=== PATIENT | male | born 1990 | race Caucasian/White ===

== ENCOUNTER 2019-09-14 01:33 | Inpatient (IN) | payer OTHER ==
[2019-09-14] MEDS ORDERED: Norepinephrine 16MCG/ML IVPRE* 4,000 MCG/250 ML BAG IV ONE (02:22)
[2019-09-14] MEDS ORDERED: Propofol* 100 ML ONE (02:22)
[2019-09-14] MEDS ORDERED: Propofol* 100 ML IV SCH (03:00)
[2019-09-14] MEDS ORDERED: Norepinephrine 16MCG/ML IVPRE* 4,000 MCG/250 ML BAG IV SCH (03:00)
[2019-09-14] MEDS ORDERED: NS 0.9% 1000 ML** 1,000 ML IV SCH ×3 (03:15→13:47)
[2019-09-14 03:24] LABS: Hematocrit 37 % (42-52); Hemoglobin 12.6 g/dL (14.0-18.0); Mean Corpuscular HGB Conc 34 g/dL (31-36); Mean Corpuscular Hemoglobin 30 pg (27-31); Mean Corpuscular Volume 89 fL (80-94); Mean Platelet Volume 9.3 fL (7.4-10.4); Platelet Count 137 10^3/uL (150-450); Red Blood Count 4.19 10^6 /uL (4.18-5.48); Red Cell Distribution Width 14 % (10-15); White Blood Count 21.1 10^3/uL (3.5-10.8)
[2019-09-14] MEDS ORDERED: Piperacillin/Tazobac ADVAN(*) 3.375 GM in NS 0.9% 100 ML* 100 ML IVPB ONE (03:41)
[2019-09-14 03:42] LABS: Albumin 4.1 g/dL (3.2-5.2); CO2 Carbon Dioxide 19 mmol/L (22-32); Calcium 7.5 mg/dL (8.6-10.3); Magnesium 2.5 mg/dL (1.9-2.7); Potassium 4.4 mmol/L (3.5-5.0); Sodium 142 mmol/L (135-145)
[2019-09-14 03:44] LABS: Anion Gap 8 mmol/L (2-11); Chloride 115 mmol/L (101-111)
[2019-09-14 03:48] LABS: ABS Lymphocytes 0.6 10^3/ul (1.0-4.8); ABS Monocytes 2.4 10^3/ul (0-0.8); ABS Neutrophils 18.1 10^3/ul (1.5-7.7); ALT 26 U/L (7-52); AST 106 U/L (13-39); Albumin/Globulin Ratio 2.2 (1-3); Alkaline Phosphatase 69 U/L (34-104); BUN/Creatinine Ratio 16.5 (8-20); Blood Urea Nitrogen 26 mg/dL (6-24); C Reactive Protein < 1.00 mg/L (<8.01); EGFR African American 63.5 (>60); EGFR Non-African American 52.5 (>60); Globulin 1.9 g/dL (2-4); Glucose 131 mg/dL (70-100); Lymphocyte % 2.9 %; Troponin I 0.07 ng/mL (<0.03)
[2019-09-14 04:00] LABS: Creatine Kinase 7414 U/L (10-223)
[2019-09-14] MEDS ORDERED: Zosyn per Pharmacy* NOTE FOLLOW UP SCH (04:00)
[2019-09-14] MEDS: Propofol* 100 ML IV SCH ×4 (04:18→17:36)
[2019-09-14 04:20] LABS: TSH (Thyroid Stimulating Horm) 0.95 mcIU/mL (0.34-5.60)
[2019-09-14 04:46] LABS: Urine Appearance Turbid; Urine Bacteria Absent (Absent); Urine Bilirubin Negative (Negative); Urine Blood 3+ (Negative); Urine Color Red; Urine Glucose Negative (Negative); Urine Ketones 1+ (Negative); Urine Nitrite Negative (Negative); Urine Protein 2+(100 mg/dL) (Negative); Urine Red Blood Cell 3+(>10/hpf) (Absent); Urine Specific Gravity 1.016 (1.010-1.030); Urine Squamous Epithelial Cell Present (Absent); Urine Urobilinogen Negative (Negative); Urine White Blood Cell Absent (Absent)
[2019-09-14] MEDS: Pantoprazole IV* 40 MG IV SCH ×2 (07:49→08:06)
[2019-09-14] MEDS: Heparin VIAL(*) 5000 UNITS/ML VIAL (FIVE THOUSAND) SUBCUT SCH ×3 (08:11→23:04)
[2019-09-14 08:38] LABS: Troponin I 0.05 ng/mL (<0.03)
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
[2019-09-14] MEDS ORDERED: Chlorhexidine MOUTHWASH 0.12%* 15 ML UDC SWISH SPIT SCH (10:00)
[2019-09-14] MEDS: ZOSYN 3.375 GM Q8H per EXTENDED INFUSION IVPB SCH ×6 (10:02→23:04)
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
[2019-09-14] MEDS: Chlorhexidine MOUTHWASH 0.12%* 15 ML UDC SWISH SPIT SCH ×3 (12:08→20:37)
[2019-09-14] MEDS ORDERED: NS 0.9% 1000 ML** 1,000 ML IV ONE (13:46)
[2019-09-14] MEDS ORDERED: Sodium Bicarbonate 8.4% IV* 150 MEQ in D5W 1000 ML BAG* 850 ML IV ONE ×4 (14:00)
[2019-09-14] MEDS: NS 0.9% 1000 ML** 1,000 ML IV SCH ×2 (19:59→23:45)
[2019-09-14] MEDS ORDERED: fentaNYL INFUSION 50 MCG/ML* 2,500 MCG/50 ML BAG IV SCH (23:00)
[2019-09-15] MEDS: Chlorhexidine MOUTHWASH 0.12%* 15 ML UDC SWISH SPIT SCH ×6 (02:13→20:13)
[2019-09-15] MEDS: Propofol* 100 ML IV SCH ×5 (02:52→20:12)
[2019-09-15] MEDS: Heparin VIAL(*) 5000 UNITS/ML VIAL (FIVE THOUSAND) SUBCUT SCH ×3 (05:50→21:01)
[2019-09-15 06:26] LABS: ABS Lymphocytes 2.9 10^3/ul (1.0-4.8); ABS Monocytes 0.9 10^3/ul (0-0.8); ABS Neutrophils 6.3 10^3/ul (1.5-7.7); Eosinophil % 0.4 %; Hematocrit 34 % (42-52); Hemoglobin 11.7 g/dL (14.0-18.0); Lymphocyte % 28.3 %; Mean Corpuscular HGB Conc 35 g/dL (31-36); Mean Corpuscular Hemoglobin 31 pg (27-31); Mean Corpuscular Volume 88 fL (80-94); Mean Platelet Volume 8.8 fL (7.4-10.4); Nucleated Red Blood Cells % 0.1; Platelet Count 102 10^3/uL (150-450); Red Cell Distribution Width 14 % (10-15); White Blood Count 10.1 10^3/uL (3.5-10.8)
[2019-09-15 06:49] LABS: Albumin 2.9 g/dL (3.2-5.2); Albumin/Globulin Ratio 1.8 (1-3); BUN/Creatinine Ratio 19.8 (8-20); Calcium 7.3 mg/dL (8.6-10.3); EGFR African American 100.7 (>60); EGFR Non-African American 83.2 (>60); Globulin 1.6 g/dL (2-4); Potassium 3.7 mmol/L (3.5-5.0); Total Bilirubin 0.4 mg/dL (0.2-1.0); Total Protein 4.5 g/dL (6.4-8.9)
[2019-09-15] MEDS: NS 0.9% 1000 ML** 1,000 ML IV SCH ×2 (07:26→11:08)
[2019-09-15] MEDS: ZOSYN 3.375 GM Q8H per EXTENDED INFUSION IVPB SCH ×4 (08:16→16:20)
[2019-09-15] MEDS: Pantoprazole IV* 40 MG IV SCH (08:17)
[2019-09-15] MEDS ORDERED: Dextrose 50% Syringe 50 ML* 25 GM/50 ML SYRINGE IV PUSH PRN (11:14)
[2019-09-15] MEDS: D5LR 1000 ML BAG* 1,000 ML IV SCH ×3 (11:36→21:01)
[2019-09-15] MEDS: Sodium Bicarbonate 8.4% IV* 150 MEQ in D5W 1000 ML BAG* 850 ML IV SCH ×4 (11:51→20:51)
--- NOTE | 2019-09-15 16:26 | PN ---
Date of Service: 09/15/19 Critical Care Services: Remains on ventilator and sedated with propofol. Has severe rhabdomyolysis, with last CPK of 35,000 - is being managed with aggressive saline infusions and a bicarbonate drip. Vital Signs: Temp Pulse Resp BP SpO2 FiO2 97.4 F 74 14 110/63 96 21 Physical Exam: Gen:Sedated and ventilated HEENT:Pupils midposition and reactive Lungs:Clear Cardiac: Reg rhythm Abdomen:Not distended Extremities:No cyanosis or edema Neuro: no focal deficits Fluid Balance (Past 24 Hours): 09/14/19 09/15/19 06:59 06:59 Intake Total 408 5823 Output Total 810 1715 Balance -402 4108 Weight 135 lb 2.294 oz 141 lb 1.533 oz Intake: IV Fluids 218 5124 ABX - ZOSYN D5W LR NS (0.9%) 218 4024 bicarb 1100 IVPB 111 274 ABX - ZOSYN 111 176 NS (0.9%) 98 Medicated IV 79 425 CC - Norepinephrine/ 19 Levophed CC - Propofol/Diprivan 60 425 IV Narcotic Infusion Fentanyl Oral 0 Output: Roth 810 1715 Other: Date of Last Bowel 09/14/2019 Movement # Bowel Movements 1 Estimated Stool Amount Medium Labs: 09/15/19 09/15/19 09/15/19 05:55 05:55 12:00 WBC 10.1 RBC 3.80 L Hgb 11.7 L Hct 34 L MCV 88 MCH 31 MCHC 35 RDW 14 Plt Count 102 L MPV 8.8 Neut % (Auto) 62.0 Lymph % (Auto) 28.3 Yancey % (Auto) 9.0 Eos % (Auto) 0.4 Baso % (Auto) 0.3 Absolute Neuts (auto) 6.3 Absolute Lymphs (auto) 2.9 Absolute Monos (auto) 0.9 H Absolute Eos (auto) 0.0 Absolute Basos (auto) 0.0 Absolute Nucleated RBC 0.0 Nucleated RBC % 0.1 Sodium 142 Potassium 3.7 Chloride 115 H Carbon Dioxide 23 Anion Gap 4 BUN 21 Creatinine 1.06 Est GFR ( Amer) 100.7 Est GFR (Non-Af Amer) 83.2 BUN/Creatinine Ratio 19.8 Glucose 75 Calcium 7.3 L Phosphorus 3.0 Total Bilirubin 0.40 AST 798 H ALT 196 H Alkaline Phosphatase 60 Total Creatine Kinase 13428 H Total Protein 4.5 L Albumin 2.9 L Globulin 1.6 L Albumin/Globulin Ratio 1.8 Urine pH 09/15/19 15:08 WBC RBC Hgb Hct MCV MCH MCHC RDW Plt Count MPV Neut % (Auto) Lymph % (Auto) Yancey % (Auto) Eos % (Auto) Baso % (Auto) Absolute Neuts (auto) Absolute Lymphs (auto) Absolute Monos (auto) Absolute Eos (auto) Absolute Basos (auto) Absolute Nucleated RBC Nucleated RBC % Sodium Potassium Chloride Carbon Dioxide Anion Gap BUN Creatinine Est GFR ( Amer) Est GFR (Non-Af Amer) BUN/Creatinine Ratio Glucose Calcium Phosphorus Total Bilirubin AST ALT Alkaline Phosphatase Total Creatine Kinase Total Protein Albumin Globulin Albumin/Globulin Ratio Urine pH 5 Studies: Urine pH = 5 Nutrition: Started tube feedings with Jevity 1.2 at 60 cc/hr Impression: Drug overdose (multiple drugs) with severe rhabdomyolysis Plan: 1. Saline infusion at 250 cc/hr 2. Bicarb infusion (3 amps in 1 liter D5W) at 200 cc/hr and titrate to keep urine pH > 6.5 3. Keep sedated and on ventilator until after CPK peaks NOTE: We found patient's parents and spoke with the mother, who gives a history of longstanding drug problems. Critical Care Time: 45 minutes
[2019-09-15 18:57] LABS: BUN/Creatinine Ratio 15.7 (8-20); EGFR African American 105.2 (>60); Potassium 3.7 mmol/L (3.5-5.0)
[2019-09-15] MEDS ORDERED: Midazolam IV for DRIP* 100 MG in NS 0.9% 100 ML* 80 ML IV SCH (21:00)
[2019-09-16] MEDS: Propofol* 100 ML IV SCH ×6 (00:02→21:35)
[2019-09-16] MEDS: Chlorhexidine MOUTHWASH 0.12%* 15 ML UDC SWISH SPIT SCH ×6 (00:02→19:51)
[2019-09-16] MEDS: ZOSYN 3.375 GM Q8H per EXTENDED INFUSION IVPB SCH ×6 (00:03→16:27)
[2019-09-16] MEDS: Sodium Bicarbonate 8.4% IV* 150 MEQ in D5W 1000 ML BAG* 850 ML IV SCH ×3 (00:51→07:36)
[2019-09-16] MEDS: D5LR 1000 ML BAG* 1,000 ML IV SCH (02:19)
[2019-09-16 04:49] LABS: ABS Eosinophils 0.2 10^3/ul (0-0.6); ABS Lymphocytes 2.4 10^3/ul (1.0-4.8); ABS Monocytes 0.9 10^3/ul (0-0.8); ABS Neutrophils 5.2 10^3/ul (1.5-7.7); Eosinophil % 1.9 %; Hematocrit 35 % (42-52); Hemoglobin 12.1 g/dL (14.0-18.0); Lymphocyte % 27.4 %; Mean Corpuscular HGB Conc 35 g/dL (31-36); Mean Corpuscular Hemoglobin 31 pg (27-31); Mean Corpuscular Volume 88 fL (80-94); Mean Platelet Volume 8.7 fL (7.4-10.4); Platelet Count 100 10^3/uL (150-450); Red Blood Count 3.93 10^6 /uL (4.18-5.48); Red Cell Distribution Width 14 % (10-15); White Blood Count 8.6 10^3/uL (3.5-10.8)
[2019-09-16 05:01] LABS: Albumin 2.6 g/dL (3.2-5.2); Total Bilirubin 0.4 mg/dL (0.2-1.0)
[2019-09-16 05:07] LABS: Albumin/Globulin Ratio 1.7 (1-3); BUN/Creatinine Ratio 11.7 (8-20); EGFR African American 115.6 (>60); EGFR Non-African American 95.6 (>60); Globulin 1.5 g/dL (2-4); Total Protein 4.1 g/dL (6.4-8.9)
[2019-09-16] MEDS: Heparin VIAL(*) 5000 UNITS/ML VIAL (FIVE THOUSAND) SUBCUT SCH ×3 (05:09→21:34)
[2019-09-16] MEDS: KCL 20 MEQ/100 ML IVPREMIX* 20 MEQ/100 ML BAG IV SCH ×3 (06:41→11:05)
[2019-09-16] MEDS: Pantoprazole IV* 40 MG IV SCH (07:35)
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
[2019-09-16] MEDS ORDERED: Lorazepam PYXIS KEY ONE (12:29)
[2019-09-16] MEDS ORDERED: LORazepam INJ* 2 MG/ML 1 ML VIAL ONE (12:30)
[2019-09-16] MEDS ORDERED: LORazepam INJ* 2 MG/ML 1 ML VIAL IV PUSH PRN (12:38)
[2019-09-16] MEDS ORDERED: Lorazepam PYXIS KEY PRN (12:38)
[2019-09-16 15:35] LABS: CO2 Carbon Dioxide 32 mmol/L (22-32); Calcium 7.4 mg/dL (8.6-10.3); Chloride 108 mmol/L (101-111); Potassium 3.8 mmol/L (3.5-5.0); Sodium 139 mmol/L (135-145)
[2019-09-16 15:40] LABS: BUN/Creatinine Ratio 10.5 (8-20); Blood Urea Nitrogen 8 mg/dL (6-24); EGFR African American 147.8 (>60); EGFR Non-African American 122.1 (>60); Glucose 121 mg/dL (70-100)
[2019-09-16] MEDS: NS 0.9% 1000 ML** 1,000 ML IV SCH (16:27)
[2019-09-16 16:28] LABS: Creatine Kinase 12228 U/L (10-223)
[2019-09-17] MEDS: Propofol* 100 ML IV SCH ×3 (01:20→07:27)
[2019-09-17] MEDS: NS 0.9% 1000 ML** 1,000 ML IV SCH ×4 (01:20→17:52)
[2019-09-17] MEDS: Chlorhexidine MOUTHWASH 0.12%* 15 ML UDC SWISH SPIT SCH ×4 (04:08→13:21)
[2019-09-17 04:39] LABS: BUN/Creatinine Ratio 11.3 (8-20); Calcium 7.5 mg/dL (8.6-10.3); EGFR African American 139.3 (>60); EGFR Non-African American 115.1 (>60); Potassium 4.3 mmol/L (3.5-5.0)
[2019-09-17] MEDS: Heparin VIAL(*) 5000 UNITS/ML VIAL (FIVE THOUSAND) SUBCUT SCH ×3 (06:05→21:35)
[2019-09-17] MEDS ORDERED: Lorazepam PYXIS KEY PRN (07:45)
[2019-09-17] MEDS: ZOSYN 3.375 GM Q8H per EXTENDED INFUSION IVPB SCH ×4 (07:58)
[2019-09-17] MEDS: Pantoprazole IV* 40 MG IV SCH (08:02)
[2019-09-17] MEDS ORDERED: Dexmedetomidine* 1,000 MCG in NS 0.9% 250 ML* 240 ML IV SCH (09:00)
--- NOTE | 2019-09-17 09:06 | PN ---
Progress Note - Progress Note Date of Service: 09/17/19 Note: Progress Note -- Critical Care 24 hour events/significant events: - CPK continues to trend down. - Remains sedated and comfortable ROS: ROS unable to be obtained secondary to intubated/sedated Tele: sinus Vitals: Vital Signs 09/16/19 09/16/19 09/16/19 09:00 09:15 09:30 Temperature Pulse Rate 84 82 84 Respiratory 14 Rate Blood Pressure 120/65 120/60 (mmHg) O2 Sat by Pulse 96 96 96 Oximetry 09/16/19 09/16/19 09/16/19 09:45 10:00 10:15 Temperature Pulse Rate 87 83 85 Respiratory 14 Rate Blood Pressure 115/62 (mmHg) O2 Sat by Pulse 93 94 94 Oximetry 09/16/19 09/16/19 09/16/19 10:30 10:45 11:00 Temperature Pulse Rate 81 98 85 Respiratory 14 Rate Blood Pressure 113/59 117/60 (mmHg) O2 Sat by Pulse 95 75 91 Oximetry 09/16/19 09/16/19 09/16/19 11:15 11:30 11:45 Temperature Pulse Rate 88 83 105 Respiratory Rate Blood Pressure 111/61 (mmHg) O2 Sat by Pulse 91 96 96 Oximetry 09/16/19 09/16/19 09/16/19 12:00 12:15 12:30 Temperature 97.0 F Pulse Rate 85 79 87 Respiratory Rate Blood Pressure 111/61 116/67 (mmHg) O2 Sat by Pulse 97 97 94 Oximetry 09/16/19 09/16/19 09/16/19 12:35 12:45 13:00 Temperature Pulse Rate 86 85 Respiratory 14 14 Rate Blood Pressure 104/51 (mmHg) O2 Sat by Pulse 95 96 Oximetry 09/16/19 09/16/19 09/16/19 13:15 13:30 13:45 Temperature Pulse Rate 85 84 85 Respiratory Rate Blood Pressure 97/49 (mmHg) O2 Sat by Pulse 97 95 94 Oximetry 09/16/19 09/16/19 09/16/19 14:00 14:15 14:30 Temperature Pulse Rate 83 85 84 Respiratory Rate Blood Pressure 102/53 99/54 (mmHg) O2 Sat by Pulse 95 95 95 Oximetry 09/16/19 09/16/19 09/16/19 14:45 15:00 15:15 Temperature Pulse Rate 84 83 87 Respiratory 14 Rate Blood Pressure 103/50 (mmHg) O2 Sat by Pulse 95 96 96 Oximetry 09/16/19 09/16/19 09/16/19 15:30 15:45 16:00 Temperature 96.8 F Pulse Rate 87 83 84 Respiratory 14 Rate Blood Pressure 101/46 105/45 (mmHg) O2 Sat by Pulse 97 97 97 Oximetry 09/16/19 09/16/19 09/16/19 16:15 16:30 16:45 Temperature Pulse Rate 85 85 82 Respiratory Rate Blood Pressure 106/47 (mmHg) O2 Sat by Pulse 97 97 97 Oximetry 09/16/19 09/16/19 09/16/19 17:00 17:15 17:30 Temperature Pulse Rate 85 86 88 Respiratory 14 Rate Blood Pressure 109/53 110/55 (mmHg) O2 Sat by Pulse 97 97 97 Oximetry 09/16/19 09/16/19 09/16/19 17:45 18:00 18:30 Temperature Pulse Rate 92 94 87 Respiratory 14 Rate Blood Pressure 120/60 114/57 (mmHg) O2 Sat by Pulse 97 96 97 Oximetry 09/16/19 09/16/19 09/16/19 19:00 19:30 20:00 Temperature 97.2 F Pulse Rate 93 89 90 Respiratory 14 14 Rate Blood Pressure 116/57 120/56 119/59 (mmHg) O2 Sat by Pulse 97 97 97 Oximetry 09/16/19 09/16/19 09/16/19 20:30 21:00 21:30 Temperature Pulse Rate 90 85 88 Respiratory 14 Rate Blood Pressure 119/54 119/54 113/53 (mmHg) O2 Sat by Pulse 96 96 96 Oximetry 09/16/19 09/16/19 09/16/19 22:00 22:30 23:00 Temperature Pulse Rate 86 87 82 Respiratory 14 14 Rate Blood Pressure 118/56 117/53 109/51 (mmHg) O2 Sat by Pulse 96 96 97 Oximetry 09/16/19 09/16/19 09/17/19 23:30 23:34 00:00 Temperature 98.3 F Pulse Rate 82 79 Respiratory 14 Rate Blood Pressure 112/54 106/48 (mmHg) O2 Sat by Pulse 97 97 Oximetry 09/17/19 09/17/19 09/17/19 00:30 01:00 01:30 Temperature Pulse Rate 79 78 77 Respiratory 14 Rate Blood Pressure 114/60 115/64 111/56 (mmHg) O2 Sat by Pulse 96 98 98 Oximetry 09/17/19 09/17/19 09/17/19 02:00 02:30 03:00 Temperature Pulse Rate 78 75 75 Respiratory 14 14 Rate Blood Pressure 112/55 113/57 113/54 (mmHg) O2 Sat by Pulse 97 97 98 Oximetry 09/17/19 09/17/19 09/17/19 03:30 03:59 04:00 Temperature 97.5 F Pulse Rate 74 81 Respiratory 14 Rate Blood Pressure 107/54 119/70 (mmHg) O2 Sat by Pulse 99 98 Oximetry 09/17/19 09/17/19 09/17/19 04:30 05:00 05:30 Temperature Pulse Rate 74 73 73 Respiratory 14 Rate Blood Pressure 127/74 124/69 116/58 (mmHg) O2 Sat by Pulse 97 97 97 Oximetry 09/17/19 09/17/19 09/17/19 06:00 06:30 07:00 Temperature Pulse Rate 73 73 72 Respiratory 14 14 Rate Blood Pressure 115/58 125/65 128/69 (mmHg) O2 Sat by Pulse 98 100 100 Oximetry 09/17/19 09/17/19 09/17/19 07:30 08:00 08:30 Temperature 97.0 F Pulse Rate 74 77 77 Respiratory 14 Rate Blood Pressure 130/65 129/72 126/62 (mmHg) O2 Sat by Pulse 100 100 100 Oximetry Intake and Output Last 24 Hours 09/15/19 09/16/19 09/17/19 09/18/19 06:59 06:59 06:59 06:59 Intake Total 5823 7992 43544 82 Output Total 1715 2150 4090 585 Balance 4108 5842 80508 -503 Weight 141 lb 1.533 oz 149 lb 1.745 oz Intake: IV Fluids 5124 2354 61721 ABX - ZOSYN 75 100 D5W LR 470 3754 NS (0.9%) 4024 1405 2838 bicarb 5978 382 1993 IVPB 274 5000 526 ABX - ZOSYN 176 100 226 D5W LR 2200 NS (0.9%) 98 300 bicarb 2700 Medicated IV 425 156 918 CC - Propofol/Diprivan 425 156 918 IV Narcotic Infusion 82 53 Fentanyl 62 33 Versed 20 20 Oral 0 0 0 Tube Feeding 400 1746 82 Tube Feeding Flush Amount 180 0 Output: Urine 100 Carrera 1715 2050 4090 585 Tube Feeding Residual 0 Amount Wasted Other: Date of Last Bowel 09/14/2019 09/14/2019 09/14/2019 Movement # Bowel Movements 1 Estimated Stool Amount Medium Vent: CMV 14/500/+5/21% Infusions: Propofol @ 80 Medications: Chlorhexidine Gluconate (Peridex Mouth Wash 0.12%*) 15 ml SWISH SPIT Q4H [facility] Last Admin: 09/17/19 07:50 Dose: 15 ml Dextrose (D50w Syringe 50 Ml*) 25 gm IV PUSH ONCE PRN PRN Reason: FS < 60 Last Admin: 09/15/19 11:36 Dose: 25 gm Heparin Sodium (Porcine) (Heparin Vial(*)) 5,000 units SUBCUT Q8HR [facility] Last Admin: 09/17/19 06:05 Dose: 5,000 units Propofol (Diprivan*) 100 mls @ 0 mls/hr IV .PER PROTOCOL NEMESIO; Protocol Last Admin: 09/17/19 07:27 Dose: 28.8 mls/hr Sodium Chloride (Ns 0.9% 1000 Ml) 1,000 mls @ 150 mls/hr IV PER RATE [facility] Dexmedetomidine HCl 1,000 mcg/ (Sodium Chloride) 250 mls @ 5.07 mls/hr IV .PER PROTOCOL NEMESIO; Protocol Lorazepam (Ativan Inj*) 1 mg IV PUSH Q1H PRN PRN Reason: AGITATION Miscellaneous (Ativan Pyxis Cedillo) 1 ea N/A .ATIVAN IV CEDILLO PRN PRN Reason: PYXIS CEDILLO Pantoprazole Sodium (Protonix Iv*) 40 mg IV DAILY [facility] Last Admin: 09/17/19 08:02 Dose: 40 mg Physical Exam: Constitutional: Sedation not paused. Opens eyes to voice. No apparent distress Head: normocephalic, atraumatic Eyes: no pallor, no icterus ENT: moist mucous membranes Neck: soft, supple CVS: normal rate, regular, no murmur Chest/Resp: bilateral air entry, clear but diminished throughout. No rhales, no wheeze, no rhonchi, no acc muscle use Abdomen/GI: soft, nontender, nondistended, BS+ Ext/Msk: warm, pulses+, no edema Skin: intact, warm Neuro: Sedation not paused for exam. Opens eyes briefly to voice, does not follow commands. Moving all extremities. PERRL 2mm, sluggishly reactive. Brain stem intact Labs: Laboratory Results - last 24 hr 09/15/19 09/15/19 09/15/19 11:06 12:19 18:09 Sodium Potassium Chloride Carbon Dioxide Anion Gap BUN Creatinine Est GFR ( Amer) Est GFR (Non-Af Amer) BUN/Creatinine Ratio Glucose POC Glucose (mg/dL) 60 L 142 H 211 H Calcium Total Creatine Kinase 09/16/19 09/16/19 09/16/19 00:20 12:22 14:55 Sodium 139 Potassium 3.8 Chloride 108 Carbon Dioxide 32 Anion Gap BUN 8 Creatinine 0.76 Est GFR ( Amer) 147.8 Est GFR (Non-Af Amer) 122.1 BUN/Creatinine Ratio 10.5 Glucose 121 H POC Glucose (mg/dL) 223 H 109 H Calcium 7.4 L Total Creatine Kinase 96120 H 09/16/19 09/17/19 09/17/19 18:07 00:05 04:18 Sodium 140 Potassium 4.3 Chloride 111 Carbon Dioxide 28 Anion Gap 1 L BUN 9 Creatinine 0.80 Est GFR ( Amer) 139.3 Est GFR (Non-Af Amer) 115.1 BUN/Creatinine Ratio 11.3 Glucose 119 H POC Glucose (mg/dL) 129 H 141 H Calcium 7.5 L Total Creatine Kinase 7434 H Imaging: Chest xray 09/17: No active cardiopulmonary disease Chest xray 09/14: ETT in place. No infiltrates. EKG 09/14: sinus, qtc 496 Assessment: 28M with significant medical history of drug abuse, presents on 09/14 after a suspected drug overdose. He was transferred from [facility] after being admitted with AMS, agitation, sepsis. Intubated there. Admitted to ICU with rhabdomyolysis, drug overdose, and concern for sepsis. Tox screen positive for meth, marijuana, and cocaine. - Drug overdose - Rhabdomyolysis - Aspiration pneumonia - Delirium Plan: Neuro- - Agitation: acute, most likely r/t drug overdose, delirium. Will start transitioning from propofol to precedex this AM. Will also add scheduled zyprexa - PRN Ativan for agitation -Delirium prec CVS- - No active issues -Maintain MAP>65 Resp- - Intubated. Continue current vent settings. PS trial this AM - Patient may be extubated later in the day if he wakes and does well on PS - Rpt chest xray is clear -Wean Fio2 to keep sat>92% -Aspiration prec, Pulmonary Toilet -VAP bundle ID- - Febrile on admission and WBC elevated on admission. Both have trended down but there is a concern for aspiration PNA. - Discontinued zosyn since asymptomatic - Goal temp<101 GI- -Nutrition: hold tube feeding for possible extubation later today -GI prophylaxis: protonix Renal- - Rhabdomyolysis acute, improving. Decreased NS to 150cc/hr since continues to be quite net positive. CPKs continue to trend down - Continue hydration -strict I/O, replete to keep K>4, Mg>2 -Continue carrera Heme- - No active issues - Subq heparin and SCDs for DVT prophylaxis Endo-Maintain BG<200 Musculsk- pressure ulcer prophylaxis. Bedrest. Wounds- none Nutrition- Tube feeds- hold for extubation DVT prophylaxis: Subq heparin, SCDs GI prophylaxis: protonix Central Line: right femoral line Carrera Catheter: continue Disposition: Patient requires Critical Care/ICU for rhabdomyolysis, intubation , delirium, drug overdose, probable aspiration PNA Patient clinical status: critical Code Status:full Total Critical Care time is 30minutes
[2019-09-17] MEDS: Dexmedetomidine* 1,000 MCG in NS 0.9% 250 ML* 240 ML IV SCH ×2 (09:28→23:55)
[2019-09-17] MEDS ORDERED: OLANzapine TAB*ODT* 10 MG TAB PO SCH (11:00)
[2019-09-17] MEDS ORDERED: OLANzapine TAB*ODT* 5 MG PO SCH (11:32)
[2019-09-17] MEDS: LORazepam INJ* 2 MG/ML 1 ML VIAL IV PUSH ONE (15:18)
[2019-09-17] MEDS: LORazepam INJ* 2 MG/ML 1 ML VIAL IV PUSH PRN ×4 (16:11→22:45)
[2019-09-18] MEDS: LORazepam INJ* 2 MG/ML 1 ML VIAL IV PUSH PRN ×3 (00:15→05:59)
[2019-09-18] MEDS: NS 0.9% 1000 ML** 1,000 ML IV SCH ×3 (00:23→12:42)
[2019-09-18] MEDS: Heparin VIAL(*) 5000 UNITS/ML VIAL (FIVE THOUSAND) SUBCUT SCH ×3 (04:55→20:43)
[2019-09-18 05:50] LABS: Hematocrit 38 % (42-52); Mean Corpuscular HGB Conc 34 g/dL (31-36); Mean Corpuscular Hemoglobin 30 pg (27-31); Mean Corpuscular Volume 89 fL (80-94); Mean Platelet Volume 8.6 fL (7.4-10.4); Platelet Count 111 10^3/uL (150-450); Red Blood Count 4.32 10^6 /uL (4.18-5.48); Red Cell Distribution Width 14 % (10-15); White Blood Count 9.2 10^3/uL (3.5-10.8)
[2019-09-18] MEDS: Dexmedetomidine* 1,000 MCG in NS 0.9% 250 ML* 240 ML IV SCH (06:03)
[2019-09-18 06:04] LABS: BUN/Creatinine Ratio 11.7 (8-20); Calcium 7.9 mg/dL (8.6-10.3); EGFR African American 194.1 (>60); EGFR Non-African American 160.4 (>60); Potassium 3.9 mmol/L (3.5-5.0)
[2019-09-18] MEDS ORDERED: Docusate LIQ* 100 MG/10 ML UDC PO PRN (07:18)
[2019-09-18] MEDS: Pantoprazole IV* 40 MG IV SCH (09:42)
[2019-09-18] MEDS: Haloperidol INJ IV/IM* 5 MG/ML AMP IV SLOW PU SCH ×3 (09:42→20:37)
[2019-09-18] MEDS: OLANzapine TAB*ODT* 5 MG PO SCH ×2 (09:45→20:40)
[2019-09-18] MEDS ORDERED: LORazepam INJ* 2 MG/ML 1 ML VIAL IV PUSH PRN (10:01)
--- NOTE | 2019-09-18 10:03 | PN ---
Progress Note - Progress Note Date of Service: 09/18/19 Note: Progress Note -- Critical Care 24 hour events/significant events: - Extubated successfully yesterday - Remains on precedex - Became very agitated and violent overnight ROS: ROS unable to be obtained secondary to altered mental status Tele: sinus Vitals: Vital Signs 09/17/19 09/17/19 09/17/19 10:00 10:01 10:30 Temperature Pulse Rate 96 105 72 Respiratory 21 Rate Blood Pressure 132/107 140/82 (mmHg) O2 Sat by Pulse 89 85 97 Oximetry 09/17/19 09/17/19 09/17/19 11:00 11:30 11:55 Temperature Pulse Rate 72 71 Respiratory 14 15 Rate Blood Pressure 128/69 118/65 (mmHg) O2 Sat by Pulse 97 95 Oximetry 09/17/19 09/17/19 09/17/19 12:00 12:15 12:30 Temperature 98.2 F Pulse Rate 73 66 67 Respiratory Rate Blood Pressure 137/87 141/85 142/86 (mmHg) O2 Sat by Pulse 97 99 100 Oximetry 09/17/19 09/17/19 09/17/19 12:45 13:00 13:15 Temperature Pulse Rate 66 65 69 Respiratory 8 Rate Blood Pressure 141/85 136/83 152/105 (mmHg) O2 Sat by Pulse 99 98 95 Oximetry 09/17/19 09/17/19 09/17/19 13:30 13:45 14:00 Temperature Pulse Rate 69 61 69 Respiratory 12 Rate Blood Pressure 139/96 148/93 151/99 (mmHg) O2 Sat by Pulse 96 98 98 Oximetry 09/17/19 09/17/19 09/17/19 14:15 14:30 14:45 Temperature Pulse Rate 62 70 73 Respiratory Rate Blood Pressure 146/95 150/99 139/92 (mmHg) O2 Sat by Pulse 96 97 94 Oximetry 09/17/19 09/17/19 09/17/19 15:00 15:15 15:18 Temperature Pulse Rate 84 Respiratory 12 17 17 Rate Blood Pressure 155/103 158/90 (mmHg) O2 Sat by Pulse 96 Oximetry 09/17/19 09/17/19 09/17/19 15:30 15:45 16:00 Temperature 98.5 F Pulse Rate 70 72 68 Respiratory 18 18 17 Rate Blood Pressure 146/88 156/87 147/84 (mmHg) O2 Sat by Pulse 95 94 94 Oximetry 09/17/19 09/17/19 09/17/19 16:11 16:15 16:30 Temperature Pulse Rate 63 65 Respiratory 15 18 15 Rate Blood Pressure 154/86 145/88 (mmHg) O2 Sat by Pulse 97 96 Oximetry 09/17/19 09/17/19 09/17/19 16:45 17:00 17:15 Temperature Pulse Rate 66 63 65 Respiratory 16 16 15 Rate Blood Pressure 150/85 139/85 144/86 (mmHg) O2 Sat by Pulse 95 95 95 Oximetry 09/17/19 09/17/19 09/17/19 17:30 17:45 17:54 Temperature Pulse Rate 65 67 Respiratory 14 14 16 Rate Blood Pressure 143/85 148/84 (mmHg) O2 Sat by Pulse 95 92 Oximetry 09/17/19 09/17/19 09/17/19 18:00 18:15 18:30 Temperature Pulse Rate 69 64 60 Respiratory 16 16 18 Rate Blood Pressure 144/88 150/90 147/88 (mmHg) O2 Sat by Pulse 96 92 93 Oximetry 09/17/19 09/17/19 09/17/19 18:45 19:00 19:15 Temperature Pulse Rate 65 57 55 Respiratory 15 18 18 Rate Blood Pressure 148/94 145/87 143/87 (mmHg) O2 Sat by Pulse 97 95 97 Oximetry 09/17/19 09/17/19 09/17/19 19:30 19:45 19:59 Temperature 98.5 F Pulse Rate 54 56 Respiratory 17 19 Rate Blood Pressure 145/82 155/89 (mmHg) O2 Sat by Pulse 98 97 Oximetry 09/17/19 09/17/19 09/17/19 20:00 20:15 20:30 Temperature Pulse Rate 57 64 63 Respiratory 17 20 18 Rate Blood Pressure 138/84 153/91 141/96 (mmHg) O2 Sat by Pulse 99 96 94 Oximetry 09/17/19 09/17/19 09/17/19 20:45 20:46 20:52 Temperature Pulse Rate 66 65 Respiratory 19 22 23 Rate Blood Pressure 163/111 154/93 (mmHg) O2 Sat by Pulse 100 96 Oximetry 09/17/19 09/17/19 09/17/19 21:00 21:15 21:30 Temperature Pulse Rate 71 59 71 Respiratory 21 17 17 Rate Blood Pressure 143/81 158/97 (mmHg) O2 Sat by Pulse 96 96 91 Oximetry 09/17/19 09/17/19 09/17/19 21:43 21:45 22:00 Temperature Pulse Rate 59 67 Respiratory 20 19 20 Rate Blood Pressure 155/95 (mmHg) O2 Sat by Pulse 95 Oximetry 09/17/19 09/17/19 09/17/19 22:15 22:30 22:45 Temperature Pulse Rate 103 66 76 Respiratory 16 17 20 Rate Blood Pressure 167/94 147/89 159/95 (mmHg) O2 Sat by Pulse 100 93 98 Oximetry 09/17/19 09/17/19 09/17/19 23:00 23:05 23:15 Temperature Pulse Rate 62 76 71 Respiratory 17 23 19 Rate Blood Pressure 150/87 160/103 (mmHg) O2 Sat by Pulse 91 99 97 Oximetry 09/17/19 09/17/19 09/18/19 23:30 23:45 00:00 Temperature 97.7 F Pulse Rate 60 69 55 Respiratory 17 21 16 Rate Blood Pressure 149/89 158/94 (mmHg) O2 Sat by Pulse 93 97 98 Oximetry 09/18/19 09/18/19 09/18/19 00:01 00:15 00:30 Temperature Pulse Rate 57 68 55 Respiratory 19 16 20 Rate Blood Pressure 145/79 151/87 152/85 (mmHg) O2 Sat by Pulse 97 97 95 Oximetry 09/18/19 09/18/19 09/18/19 00:45 01:00 01:15 Temperature Pulse Rate 55 52 54 Respiratory 19 18 18 Rate Blood Pressure 147/85 145/85 152/81 (mmHg) O2 Sat by Pulse 96 96 96 Oximetry 09/18/19 09/18/19 09/18/19 01:30 01:45 02:00 Temperature Pulse Rate 54 53 53 Respiratory 16 17 17 Rate Blood Pressure 143/83 139/79 (mmHg) O2 Sat by Pulse 96 97 96 Oximetry 09/18/19 09/18/19 09/18/19 02:15 02:30 03:00 Temperature Pulse Rate 51 51 49 Respiratory 17 16 17 Rate Blood Pressure 142/80 141/81 149/86 (mmHg) O2 Sat by Pulse 97 98 98 Oximetry 09/18/19 09/18/19 09/18/19 03:30 04:00 04:11 Temperature 96.7 F Pulse Rate 48 48 58 Respiratory 18 17 16 Rate Blood Pressure 148/86 163/104 144/96 (mmHg) O2 Sat by Pulse 98 99 Oximetry 09/18/19 09/18/19 09/18/19 04:30 04:46 05:00 Temperature Pulse Rate 52 Respiratory 14 20 16 Rate Blood Pressure 157/100 158/93 (mmHg) O2 Sat by Pulse 98 Oximetry 09/18/19 09/18/19 09/18/19 05:30 05:59 06:00 Temperature Pulse Rate 52 50 Respiratory 18 21 21 Rate Blood Pressure 152/90 161/86 (mmHg) O2 Sat by Pulse 99 98 Oximetry 09/18/19 09/18/19 06:04 08:00 Temperature 99.7 F Pulse Rate 56 Respiratory 17 Rate Blood Pressure 149/98 (mmHg) O2 Sat by Pulse 100 Oximetry Intake and Output Last 24 Hours 09/16/19 09/17/19 09/18/19 09/19/19 06:59 06:59 06:59 06:59 Intake Total 7992 29992 4617 Output Total 2150 4090 8236 825 Balance 5842 67506 -3619 -825 Weight 149 lb 1.745 oz 154 lb 1.65 oz Intake: IV Fluids 2354 45880 3762 ABX - ZOSYN 75 100 D5W LR 470 3754 NS (0.9%) 1405 2838 3762 bicarb 404 4434 IVPB 5000 526 122 ABX - ZOSYN 100 226 122 D5W LR 2200 NS (0.9%) 300 bicarb 2700 Medicated IV 156 918 498 CC - Propofol/Diprivan 156 918 137 Precedex 361 IV Narcotic Infusion 82 53 Fentanyl 62 33 Versed 20 20 Oral 0 0 Tube Feeding 400 1746 235 Tube Feeding Flush Amount 180 0 Output: Urine 100 Carrera 2050 4090 8236 825 Tube Feeding Residual 0 Amount Wasted Other: Date of Last Bowel 09/14/2019 09/14/2019 Movement O2: RA Infusions: Precedex @ 1.1 Medications: Bisacodyl (Dulcolax Supp*) 10 mg ME DAILY PRN PRN Reason: CONSTIPATION Dextrose (D50w Syringe 50 Ml*) 25 gm IV PUSH ONCE PRN PRN Reason: FS < 60 Last Admin: 09/15/19 11:36 Dose: 25 gm Docusate Sodium (Colace Liq*) 100 mg PO BID PRN PRN Reason: CONSTIPATION Haloperidol Lactate (Haldol Inj Iv/Im*) 5 mg IV SLOW PU Q6H [facility] Last Admin: 09/18/19 09:42 Dose: 5 mg Heparin Sodium (Porcine) (Heparin Vial(*)) 5,000 units SUBCUT Q8HR [facility] Last Admin: 09/18/19 04:55 Dose: 5,000 units Sodium Chloride (Ns 0.9% 1000 Ml) 1,000 mls @ 150 mls/hr IV PER RATE [facility] Last Admin: 09/18/19 06:40 Dose: 150 mls/hr Dexmedetomidine HCl 1,000 mcg/ (Sodium Chloride) 250 mls @ 11.83 mls/hr IV Q21H [facility]; Protocol Last Admin: 09/18/19 06:03 Dose: Not Given Lorazepam (Ativan Inj*) 2 mg IV PUSH Q1H PRN PRN Reason: AGITATION Last Admin: 09/18/19 05:59 Dose: 2 mg Miscellaneous (Ativan Pyxis Cedillo) 1 ea N/A .ATIVAN IV CEDILLO PRN PRN Reason: PYXIS CEDILLO Olanzapine (Zyprexa * Tab Odt) 5 mg PO BID [facility] Last Admin: 09/18/19 09:45 Dose: 5 mg Pantoprazole Sodium (Protonix Iv*) 40 mg IV DAILY [facility] Last Admin: 09/18/19 09:42 Dose: 40 mg Senna (Senokot 8.6 Mg Tab*) 2 tab PO BID [facility] Physical Exam: Constitutional: Lethargic, opens eyes spontaneously. No apparent distress currently Head: normocephalic, atraumatic Eyes: no pallor, no icterus ENT: moist mucous membranes Neck: soft, supple CVS: normal rate, regular, no murmur Chest/Resp: bilateral air entry, clear but diminished throughout. No rhales, no wheeze, no rhonchi, no acc muscle use Abdomen/GI: soft, nontender, nondistended, BS+ Ext/Msk: warm, pulses+, no edema Skin: intact, warm Neuro: Lethargic, opens eyes spontaneously. Attempts to track. Oriented x 3 but most sentences are nonsensical. Follows commands at times. Moving all extremities. PERRL 2mm. Labs: Laboratory Results - last 24 hr 09/17/19 09/17/1909/17/20 06:08 12:05 17:59 WBC RBC Hgb Hct MCV MCH MCHC RDW Plt Count MPV Sodium Potassium Chloride Carbon Dioxide Anion Gap BUN Creatinine Est GFR ( Amer) Est GFR (Non-Af Amer) BUN/Creatinine Ratio Glucose POC Glucose (mg/dL) 138 H 110 H 92 Calcium Total Creatine Kinase 09/18/19 09/18/19 09/18/19 00:27 05:35 05:35 WBC 9.2 RBC 4.32 Hgb 13.0 L Hct 38 L MCV 89 MCH 30 MCHC 34 RDW 14 Plt Count 111 L MPV 8.6 Sodium 140 Potassium 3.9 Chloride 113 H Carbon Dioxide 21 L Anion Gap 6 BUN 7 Creatinine 0.60 L Est GFR ( Amer) 194.1 Est GFR (Non-Af Amer) 160.4 BUN/Creatinine Ratio 11.7 Glucose 96 POC Glucose (mg/dL) 104 H Calcium 7.9 L Total Creatine Kinase 6078 H Imaging: Chest xray 09/17: No active cardiopulmonary disease Chest xray 09/14: ETT in place. No infiltrates. EKG 09/14: sinus, qtc 496 Assessment: 28M with significant medical history of drug abuse, presents on 09/14 after a suspected drug overdose. He was transferred from [facility] after being admitted with AMS, agitation, sepsis. Intubated there. Admitted to ICU with rhabdomyolysis, drug overdose, and concern for sepsis. Tox screen positive for meth, marijuana, and cocaine. - Drug overdose - Rhabdomyolysis - Aspiration pneumonia - Delirium Plan: Neuro- - Agitation: acute, most likely r/t drug overdose, delirium. Remains on precedex drip. Started scheduled zyprexa and increased dose of PRN ativan yesteday. Has received multiple doses of ativan overnight. Still became violent overnight, requiring security to be called multiple times, and the addition of ankle restraints. - EKG complete and QTC WNL so started haldol 5mg IV scheduled q6hr. May increase to q4hr if needed. Will minimize ativan usage. - Increased zyprexa to 5mg BID. Will increase this if necessary. - Continue to wean down precedex as indicated CVS- - No active issues -Maintain MAP>65 Resp- - Succesfully extubated yesterday. Is on room air. - Keep sat>92% -Aspiration prec, Pulmonary Toilet ID- - Afebrile, WBC WNL - Goal temp<101 GI- -Nutrition: swallow eval when patient is awake and more appropriate for a PO diet. -GI prophylaxis: protonix Renal- - Rhabdomyolysis acute, improving. Continue NS @ 150cc/hr. CPKs continue to trend down - Net negative at this time -strict I/O, replete to keep K>4, Mg>2 -Continue carrera Heme- - No active issues - Subq heparin and SCDs for DVT prophylaxis Endo-Maintain BG<200 Musculsk- pressure ulcer prophylaxis. Bedrest. Wounds- none Nutrition- NPO until awake enough to tolerate PO DVT prophylaxis: Subq heparin, SCDs GI prophylaxis: protonix Central Line: right femoral line Carrera Catheter: continue Disposition: Patient requires Critical Care/ICU for precedex drip/delirium Patient clinical status: stable Code Status:full
[2019-09-18] MEDS: Senna TAB 8.6 mg* TAB PO SCH ×2 (15:01→23:02)
[2019-09-18] MEDS: D5LR 1000 ML BAG* 1,000 ML IV SCH ×2 (15:26→23:05)
[2019-09-19] MEDS: Dexmedetomidine* 1,000 MCG in NS 0.9% 250 ML* 240 ML IV SCH (01:33)
[2019-09-19] MEDS: Haloperidol INJ IV/IM* 5 MG/ML AMP IV SLOW PU SCH (04:53)
[2019-09-19 05:46] LABS: BUN/Creatinine Ratio 10.8 (8-20); Calcium 8.4 mg/dL (8.6-10.3); EGFR Non-African American 146.3 (>60); Potassium 3.8 mmol/L (3.5-5.0)
[2019-09-19] MEDS: Heparin VIAL(*) 5000 UNITS/ML VIAL (FIVE THOUSAND) SUBCUT SCH ×3 (06:00→22:19)
--- NOTE | 2019-09-19 09:11 | PN ---
Progress Note - Progress Note Date of Service: 09/19/19 Note: 24 hour events/significant events: - Precedex weaned off - Behaviors are improved ROS: ROS unable to be obtained secondary to altered mental status Tele: sinus Vitals: Vital Signs 09/18/19 09/18/19 09/18/19 09:00 09:15 09:30 Temperature Pulse Rate 61 54 73 Respiratory 15 20 13 Rate Blood Pressure 154/86 152/92 (mmHg) O2 Sat by Pulse 100 100 Oximetry 09/18/19 09/18/19 09/18/19 09:45 10:00 10:15 Temperature Pulse Rate 55 61 58 Respiratory 18 16 16 Rate Blood Pressure 152/81 (mmHg) O2 Sat by Pulse 100 99 99 Oximetry 09/18/19 09/18/19 09/18/19 10:30 10:45 11:00 Temperature Pulse Rate 61 58 63 Respiratory 15 15 15 Rate Blood Pressure 145/74 151/77 (mmHg) O2 Sat by Pulse 100 100 100 Oximetry 09/18/19 09/18/19 09/18/19 11:08 11:15 11:30 Temperature 97.6 F Pulse Rate 75 74 Respiratory 14 14 Rate Blood Pressure 140/81 (mmHg) O2 Sat by Pulse 97 95 Oximetry 09/18/19 09/18/19 09/18/19 11:45 12:00 12:15 Temperature Pulse Rate 54 63 73 Respiratory 18 17 16 Rate Blood Pressure 143/81 (mmHg) O2 Sat by Pulse 98 97 98 Oximetry 09/18/19 09/18/19 09/18/19 12:30 12:45 13:00 Temperature Pulse Rate 107 91 60 Respiratory 9 12 17 Rate Blood Pressure 144/85 146/77 (mmHg) O2 Sat by Pulse 96 93 99 Oximetry 09/18/19 09/18/19 09/18/19 13:15 13:30 13:45 Temperature Pulse Rate 60 62 61 Respiratory 18 17 16 Rate Blood Pressure 149/84 (mmHg) O2 Sat by Pulse 96 99 86 Oximetry 09/18/19 09/18/19 09/18/19 14:00 14:15 14:30 Temperature Pulse Rate 64 78 71 Respiratory 14 11 9 Rate Blood Pressure 143/77 150/82 (mmHg) O2 Sat by Pulse 99 98 98 Oximetry 09/18/19 09/18/19 09/18/19 14:45 15:00 15:05 Temperature Pulse Rate 84 106 93 Respiratory 15 12 16 Rate Blood Pressure 131/69 114/62 (mmHg) O2 Sat by Pulse 97 98 97 Oximetry 09/18/19 09/18/19 09/18/19 15:10 15:15 15:20 Temperature Pulse Rate 95 98 96 Respiratory 15 15 13 Rate Blood Pressure 120/63 120/64 112/59 (mmHg) O2 Sat by Pulse 98 97 99 Oximetry 09/18/19 09/18/19 09/18/19 15:25 15:30 15:35 Temperature Pulse Rate 79 88 96 Respiratory 15 15 15 Rate Blood Pressure 131/73 131/68 130/70 (mmHg) O2 Sat by Pulse 98 98 100 Oximetry 09/18/19 09/18/19 09/18/19 15:40 15:45 15:50 Temperature Pulse Rate 88 91 105 Respiratory 15 16 15 Rate Blood Pressure 131/72 123/69 130/71 (mmHg) O2 Sat by Pulse 99 99 88 Oximetry 09/18/19 09/18/19 09/18/19 15:55 16:00 16:05 Temperature 98.9 F Pulse Rate 86 80 87 Respiratory 17 16 14 Rate Blood Pressure 131/72 135/74 135/73 (mmHg) O2 Sat by Pulse 100 98 98 Oximetry 09/18/19 09/18/19 09/18/19 16:10 16:15 16:30 Temperature Pulse Rate 91 91 97 Respiratory 15 15 15 Rate Blood Pressure 135/69 134/67 (mmHg) O2 Sat by Pulse 97 97 97 Oximetry 09/18/19 09/18/19 09/18/19 16:43 16:45 17:00 Temperature Pulse Rate 93 97 95 Respiratory 15 18 16 Rate Blood Pressure 134/67 129/68 (mmHg) O2 Sat by Pulse 97 96 99 Oximetry 09/18/19 09/18/19 09/18/19 17:15 17:30 17:45 Temperature Pulse Rate 98 99 118 Respiratory 15 19 20 Rate Blood Pressure (mmHg) O2 Sat by Pulse 100 95 96 Oximetry 09/18/19 09/18/19 09/18/19 18:00 18:57 18:58 Temperature Pulse Rate 117 106 102 Respiratory 17 21 17 Rate Blood Pressure 114/61 (mmHg) O2 Sat by Pulse 100 100 100 Oximetry 09/18/19 09/18/19 09/18/19 18:59 19:00 19:02 Temperature Pulse Rate 101 101 107 Respiratory 20 20 20 Rate Blood Pressure 130/68 (mmHg) O2 Sat by Pulse 100 100 100 Oximetry 09/18/19 09/18/19 09/18/19 19:03 19:04 19:05 Temperature Pulse Rate 103 108 119 Respiratory 21 20 18 Rate Blood Pressure (mmHg) O2 Sat by Pulse 100 98 99 Oximetry 09/18/19 09/18/19 09/18/19 19:06 19:07 19:08 Temperature Pulse Rate 103 101 101 Respiratory 12 19 19 Rate Blood Pressure (mmHg) O2 Sat by Pulse 100 100 100 Oximetry 09/18/19 09/18/19 09/18/19 19:09 19:10 19:11 Temperature Pulse Rate 108 98 105 Respiratory 16 20 17 Rate Blood Pressure (mmHg) O2 Sat by Pulse 99 100 100 Oximetry 09/18/19 09/18/19 09/18/19 19:12 19:13 19:14 Temperature Pulse Rate 103 101 103 Respiratory 19 19 20 Rate Blood Pressure (mmHg) O2 Sat by Pulse 100 100 100 Oximetry 09/18/19 09/18/19 09/18/19 19:15 19:16 19:17 Temperature Pulse Rate 109 96 103 Respiratory 20 18 20 Rate Blood Pressure (mmHg) O2 Sat by Pulse 100 100 100 Oximetry 09/18/19 09/18/19 09/18/19 19:18 19:19 19:20 Temperature 98.6 F Pulse Rate 111 100 106 Respiratory 12 19 22 Rate Blood Pressure (mmHg) O2 Sat by Pulse 98 97 97 Oximetry 09/18/19 09/18/19 09/18/19 19:21 19:22 19:23 Temperature Pulse Rate 104 110 104 Respiratory 20 15 19 Rate Blood Pressure (mmHg) O2 Sat by Pulse 98 100 100 Oximetry 09/18/19 09/18/19 09/18/19 19:24 19:25 19:26 Temperature Pulse Rate 101 102 123 Respiratory 20 19 13 Rate Blood Pressure (mmHg) O2 Sat by Pulse 100 100 97 Oximetry 09/18/19 09/18/19 09/18/19 19:27 19:28 19:29 Temperature Pulse Rate 105 113 109 Respiratory 18 11 21 Rate Blood Pressure (mmHg) O2 Sat by Pulse 100 100 100 Oximetry 09/18/19 09/18/19 09/18/19 19:30 19:31 19:32 Temperature Pulse Rate 108 126 110 Respiratory 18 16 21 Rate Blood Pressure (mmHg) O2 Sat by Pulse 100 95 97 Oximetry 09/18/19 09/18/19 09/18/19 19:33 19:34 19:35 Temperature Pulse Rate 119 110 112 Respiratory 21 21 20 Rate Blood Pressure (mmHg) O2 Sat by Pulse 97 100 100 Oximetry 09/18/19 09/18/19 09/18/19 19:36 19:37 19:38 Temperature Pulse Rate 107 107 119 Respiratory 18 18 14 Rate Blood Pressure (mmHg) O2 Sat by Pulse 100 100 96 Oximetry 09/18/19 09/18/19 09/18/19 19:39 19:40 19:41 Temperature Pulse Rate 119 97 108 Respiratory 15 18 14 Rate Blood Pressure (mmHg) O2 Sat by Pulse 100 100 Oximetry 09/18/19 09/18/19 09/18/19 19:42 19:43 19:44 Temperature Pulse Rate 108 107 97 Respiratory 9 18 20 Rate Blood Pressure (mmHg) O2 Sat by Pulse 100 98 99 Oximetry 09/18/19 09/18/19 09/18/19 19:45 19:46 19:47 Temperature Pulse Rate 96 99 109 Respiratory 19 18 18 Rate Blood Pressure (mmHg) O2 Sat by Pulse 100 100 98 Oximetry 09/18/19 09/18/19 09/18/19 19:48 19:49 19:50 Temperature Pulse Rate 96 99 96 Respiratory 18 17 17 Rate Blood Pressure (mmHg) O2 Sat by Pulse 96 93 99 Oximetry 09/18/19 09/18/19 09/18/19 19:51 19:52 19:53 Temperature Pulse Rate 99 110 98 Respiratory 17 20 16 Rate Blood Pressure (mmHg) O2 Sat by Pulse 99 98 98 Oximetry 09/18/19 09/18/19 09/18/19 19:54 19:55 19:56 Temperature Pulse Rate 101 100 100 Respiratory 15 15 14 Rate Blood Pressure (mmHg) O2 Sat by Pulse 98 98 99 Oximetry 09/18/19 09/18/19 09/18/19 19:57 19:58 19:59 Temperature Pulse Rate 99 107 95 Respiratory 16 14 15 Rate Blood Pressure (mmHg) O2 Sat by Pulse 99 93 94 Oximetry 09/18/19 09/18/19 09/18/19 20:00 21:00 22:00 Temperature Pulse Rate 101 102 106 Respiratory 19 15 11 Rate Blood Pressure 124/64 128/64 (mmHg) O2 Sat by Pulse 93 96 94 Oximetry 09/18/19 09/18/19 09/18/19 23:00 23:02 23:52 Temperature Pulse Rate 87 115 Respiratory 11 21 13 Rate Blood Pressure 135/68 (mmHg) O2 Sat by Pulse 99 98 Oximetry 09/19/19 09/19/19 09/19/19 00:00 01:00 02:00 Temperature 98.2 F Pulse Rate 100 102 92 Respiratory 13 14 16 Rate Blood Pressure 119/65 118/63 122/61 (mmHg) O2 Sat by Pulse 96 95 94 Oximetry 09/19/19 09/19/19 09/19/19 03:00 04:00 05:00 Temperature 98.7 F Pulse Rate 115 105 106 Respiratory 15 16 6 Rate Blood Pressure 127/61 109/51 121/57 (mmHg) O2 Sat by Pulse 95 96 96 Oximetry 09/19/19 09/19/19 09/19/19 06:00 07:26 08:00 Temperature 99.2 F Pulse Rate 107 Respiratory 16 18 Rate Blood Pressure 125/51 (mmHg) O2 Sat by Pulse 96 Oximetry Intake and Output Last 24 Hours 09/17/19 09/18/19 09/19/19 09/20/19 06:59 06:59 06:59 06:59 Intake Total 89273 4617 4901 0 Output Total 4090 8236 4790 0 Balance 26710 -3619 111 0 Weight 149 lb 1.745 oz 154 lb 1.65 oz 157 lb 10.088 oz Intake: IV Fluids 05335 3762 4771 ABX - ZOSYN 100 D5W LR 3754 3305 NS (0.9%) 2838 3762 1466 bicarb 4434 IVPB 526 122 ABX - ZOSYN 226 122 NS (0.9%) 300 Medicated IV 918 498 130 CC - Propofol/Diprivan 918 137 Precedex 361 130 IV Narcotic Infusion 53 Fentanyl 33 Versed 20 Oral 0 0 0 Tube Feeding 1746 235 0 Tube Feeding Flush Amount 180 0 Output: Carrera 4090 8236 4790 0 Tube Feeding Residual 0 0 Amount Wasted Other: Date of Last Bowel 09/14/2019 09/14/2019 Movement O2: RA Infusions: D5LR @ 125 Medications: Bisacodyl (Dulcolax Supp*) 10 mg UT DAILY PRN PRN Reason: CONSTIPATION Dextrose (D50w Syringe 50 Ml*) 25 gm IV PUSH ONCE PRN PRN Reason: FS < 60 Last Admin: 09/15/19 11:36 Dose: 25 gm Docusate Sodium (Colace Liq*) 100 mg PO BID PRN PRN Reason: CONSTIPATION Heparin Sodium (Porcine) (Heparin Vial(*)) 5,000 units SUBCUT Q8HR [facility] Last Admin: 09/19/19 06:00 Dose: 5,000 units Dextrose/Lactated Ringer's (D5lr 1000 Ml Bag*) 1,000 mls @ 50 mls/hr IV PER RATE [facility] Olanzapine (Zyprexa * Tab Odt) 5 mg PO BID [facility] Last Admin: 09/18/19 20:40 Dose: 5 mg Pantoprazole Sodium (Protonix Iv*) 40 mg IV DAILY [facility] Last Admin: 09/18/19 09:42 Dose: 40 mg Senna (Senokot 8.6 Mg Tab*) 2 tab PO BID [facility] Last Admin: 09/18/19 23:02 Dose: Not Given Physical Exam: Constitutional: Lethargic, opens eyes spontaneously. No apparent distress currently Head: normocephalic, atraumatic Eyes: no pallor, no icterus ENT: moist mucous membranes Neck: soft, supple CVS: normal rate, regular, no murmur Chest/Resp: bilateral air entry, clear but diminished throughout. No rhales, no wheeze, no rhonchi, no acc muscle use Abdomen/GI: soft, nontender, nondistended, BS+ Ext/Msk: warm, pulses+, BLE edema +1 Skin: intact, warm Neuro: Lethargic, opens eyes spontaneously. Attempts to track. Unable to answer orientation questions. Follows commands at times. Moving all extremities. PERRL 4mm. Labs: Laboratory Results - last 24 hr 09/18/19 09/19/19 15:05 05:10 Sodium 139 Potassium 3.8 Chloride 110 Carbon Dioxide 27 Anion Gap 2 BUN 7 Creatinine 0.65 L Est GFR ( Amer) 177.0 Est GFR (Non-Af Amer) 146.3 BUN/Creatinine Ratio 10.8 Glucose 120 H POC Glucose (mg/dL) 89 Calcium 8.4 L Total Creatine Kinase 2639 H Imaging: Chest xray 09/17: No active cardiopulmonary disease Chest xray 09/14: ETT in place. No infiltrates. EKG 09/14: sinus, qtc 496 Assessment: 28M with significant medical history of drug abuse, presents on 09/14 after a suspected drug overdose. He was transferred from [facility] after being admitted with AMS, agitation, sepsis. Intubated there. Admitted to ICU with rhabdomyolysis, drug overdose, and concern for sepsis. Tox screen positive for meth, marijuana, and cocaine. - Drug overdose - Rhabdomyolysis - Aspiration pneumonia - Delirium Plan: Neuro- - Agitation: acute, most likely r/t drug overdose, delirium. Seems to be improving. Precedex drip weaned off. - Continue scheduled zyprexa 5mg BID. May decrease dose if patient continues to be sedated. - QTC WNL. Was given about 24hrs scheduled haldol with positive effect. Remains lethargic so discontinued haldol and ativan PRN. - Pyschiatry was consulted this AM CVS- - No active issues -Maintain MAP>65 Resp- - Succesfully extubated on 09/17. Is on room air. - Keep sat>92% -Aspiration prec, Pulmonary Toilet ID- - Afebrile, WBC WNL - Goal temp<101 GI- -Nutrition: swallow eval when patient is awake and more appropriate for a PO diet. -GI prophylaxis: protonix Renal- - Rhabdomyolysis acute, improving. CPKs continue to trend down, 2639 from 6078. No need to continue checking. - Decreased D5LR to 50cc/hr for hydration. -Monitor I/Os, continue carrera for now Heme- - No active issues - Subq heparin and SCDs for DVT prophylaxis Endo-Maintain BG<200 Musculsk- pressure ulcer prophylaxis. OOB Wounds- none Nutrition- NPO until awake enough to tolerate PO DVT prophylaxis: Subq heparin, SCDs GI prophylaxis: protonix Central Line: discontinue CVC today, currently has peripheral access Carrera Catheter: continue Disposition: Patient is ready for transfer to the floor if he wakes up more this afternoon Patient clinical status: stable Code Status:full
[2019-09-19] MEDS: Pantoprazole IV* 40 MG IV SCH (09:57)
[2019-09-19] MEDS: OLANzapine TAB*ODT* 5 MG PO SCH ×2 (09:58→22:14)
[2019-09-19] MEDS: Senna TAB 8.6 mg* TAB PO SCH ×2 (09:58→22:14)
--- NOTE | 2019-09-19 13:44 | CONSULT ---
Identification - Patient Identification Reason for Psychiatric Consultation: Violent Behavior -: Patient is a 28 year old, M admitted on 09/14/19. - MHU Identification Employment Status: Unemployed Hx Psychiatric Hospitalization: No History - Objective HPI: Javier is seen on due to violent behaviors following extubation on the ICU. I understand that he was transferred from [facility] on the 14 of September following a polysubstance recreational drug overdose with subsequent development of fever, rhabdomyolysis, aspiration pneumonia and delirium. According to ICU attending Dr. Bender, who requested the consult, Javier is homeless, drug addicted and has a history of aggressive behaviors such as spitting at and striking staff when emerging from intubation. Dr. Bender used prn haldol to address agitation on the ICU and subsequently started a trial of scheduled olanzapine 5mg PO qhs, to be initiated tonight, and is wondering if this is sufficient to control the patient's aggressive behaviors for the rest of the hospital stay. On , staff indicate that the patient has just arrived and has been sleeping since arrival. On exam he is difficult to arouse and will answer some questions with short, uninformative responses, however, he demonstrates no evidence of irritability or violence. He is able to acknowledge his lack of housing and denies any history of mental health diagnoses. He endorses past abuse history of every illicit substance category that this clinician can name, including stimulants, sedatives, opioids and cannabis. His UDS was positive for amphetamines, cocaine and marijuana metabolites on admission. The patient is agreeable with inpatient drug treatment. He denies SI or HI. Exam Appearance: Thin Framed Hygiene: Mal-odorous Grooming: Disheveled Psychomotor Activities: Abnormal-Decreased Exhibits Abnormal Movement: No Attitude and Relatedness: Withdrawn Eye Contact: Poor - Speech Quality: Unpressured Latencies: Long Quantity: Terse Patient's Decription of Mood: "Fine" Observed Affect: Fair Affect Consistent with: Euthymia Patient's Thought Process: Coherent Thought Content: No Passive Wish, No Suicidal Planning, No Homicidal Ideation, No Paranoid Ideation Experiencing Hallucinations: No, Sensorium is Clear Type of Hallucinations: Visual: No, Auditory: No, Command: No Level of Consciousness: Lethargic Orientation: Yes Intact, Yes Orientated to Time, Yes Orientated to Place, Yes Orientated to Person Impulse Control: Tenuous Insight and Judgement: Fair Impression - Impression Clinical Impression: 28 y.o. single, homeless, white male with a history of polysubtance misuse transferred from [facility] following a recreational drug overdose that resulted in rhabdomyolisis, aspiration and delirium. He has displayed violent agitation since extubation and this tendency appears to be a pattern during previous hospitalizations at other facilities. Inpatient DSM-V Dx: R41.0 Merits Inpatient Hospitalization: No BSU: Problem List - Patient Problems (1) Delirium Current Visit: Yes Status: Acute Priority: Medium Code(s): R41.0 - DISORIENTATION, UNSPECIFIED SNOMED Code(s): 0011334 Plan - Treatment Plan Treatment Plan: Psychiatry supports initiation of olanzapine 5mg PO qhs for the duration of hospitalization to reduce risk of agitation or violence, which is likely secondary to delirium. We will also add an order for prn haldol. The patient would benefit from substance abuse recovery services on an inpatient basis. I understand that social work is already following his case. Psychiatry is signing off but can be re-consulted in the event of any significant changes in the patient's presentation. Continued Medication Management: Start Medication Medications: Current Medications Bisacodyl (Dulcolax Supp*) 10 mg NE DAILY PRN PRN Reason: CONSTIPATION Dextrose (D50w Syringe 50 Ml*) 25 gm IV PUSH ONCE PRN PRN Reason: FS < 60 Last Admin: 09/15/19 11:36 Dose: 25 gm Docusate Sodium (Colace Liq*) 100 mg PO BID PRN PRN Reason: CONSTIPATION Heparin Sodium (Porcine) (Heparin Vial(*)) 5,000 units SUBCUT Q8HR [facility] Last Admin: 09/19/19 06:00 Dose: 5,000 units Dextrose/Lactated Ringer's (D5lr 1000 Ml Bag*) 1,000 mls @ 50 mls/hr IV PER RATE [facility] Olanzapine (Zyprexa * Tab Odt) 5 mg PO BEDTIME [facility] Pantoprazole Sodium (Protonix Iv*) 40 mg IV DAILY [facility] Last Admin: 09/19/19 09:57 Dose: 40 mg Senna (Senokot 8.6 Mg Tab*) 2 tab PO BID [facility] Last Admin: 09/19/19 09:58 Dose: Not Given - Discharge Plan Discharge Plan: Drug/Alcohol Rehab
[2019-09-19] MEDS ORDERED: Haloperidol INJ IV/IM* 5 MG/ML AMP IV SLOW PU PRN (14:41)
[2019-09-19] MEDS: D5LR 1000 ML BAG* 1,000 ML IV SCH (23:45)
[2019-09-20] MEDS: Heparin VIAL(*) 5000 UNITS/ML VIAL (FIVE THOUSAND) SUBCUT SCH ×3 (06:08→22:14)
[2019-09-20] MEDS: Pantoprazole IV* 40 MG IV SCH (08:54)
[2019-09-20] MEDS: Senna TAB 8.6 mg* TAB PO SCH ×2 (08:54→22:04)
--- NOTE | 2019-09-20 18:03 | PN ---
Subjective Date of Service: 09/20/19 Interval History: Patient was sleeping earlier, refused exam. Later in day, he was cooperative. He has hoarse voice from intubation. He has no memory of what brought him to hospital. He is worried about finding his car. He lives in his car. I told him MJ, cocaine, and meth found in his urine. He states he might have been unconscious due to "meth derivatives." He cooks his own meth. Family History: Unchanged from Admission Social History: Unchanged from Admission Past Medical History: Unchanged from Admission Objective Active Medications: Bisacodyl (Dulcolax Supp*) 10 mg DC DAILY PRN PRN Reason: CONSTIPATION Dextrose (D50w Syringe 50 Ml*) 25 gm IV PUSH ONCE PRN PRN Reason: FS < 60 Last Admin: 09/15/19 11:36 Dose: 25 gm Docusate Sodium (Colace Liq*) 100 mg PO BID PRN PRN Reason: CONSTIPATION Haloperidol Lactate (Haldol Inj Iv/Im*) 5 mg IV SLOW PU Q6H PRN PRN Reason: AGITATION Heparin Sodium (Porcine) (Heparin Vial(*)) 5,000 units SUBCUT Q8HR [facility] Last Admin: 09/20/19 12:58 Dose: Not Given Dextrose/Lactated Ringer's (D5lr 1000 Ml Bag*) 1,000 mls @ 50 mls/hr IV PER RATE [facility] Last Admin: 09/19/19 23:45 Dose: 50 mls/hr Olanzapine (Zyprexa * Tab Odt) 5 mg PO BEDTIME [facility] Last Admin: 09/19/19 22:14 Dose: 5 mg Pantoprazole Sodium (Protonix Iv*) 40 mg IV DAILY [facility] Last Admin: 09/20/19 08:54 Dose: 40 mg Senna (Senokot 8.6 Mg Tab*) 2 tab PO BID [facility] Last Admin: 09/20/19 08:54 Dose: 2 tab Vital Signs - 8 hr 09/20/19 09/20/19 11:15 15:15 Temperature 37.2 C 36.7 C Pulse Rate 90 112 Respiratory 20 18 Rate Blood Pressure 134/60 130/63 (mmHg) O2 Sat by Pulse 97 97 Oximetry Oxygen Devices in Use Now: None Appearance: awake and alert Ears/Nose/Mouth/Throat: NL Teeth, Lips, Gums Neck: NL Appearance and Movements; NL JVP Respiratory: Symmetrical Chest Expansion and Respiratory Effort, Clear to Auscultation Cardiovascular: NL Sounds; No Murmurs; No JVD, RRR Abdominal: NL Sounds; No Tenderness; No Distention, No Hepatosplenomegaly Neurological: Alert and Oriented x 3 Lines/Tubes/Other Access: Clean, Dry and Intact Peripheral IV Nutrition: Taking PO's Result Diagrams: 09/18/19 05:35 09/19/19 05:10 Microbiology and Other Data: Microbiology 09/15/19 08:35 Gram Stain - Final Sputum Sputum Culture - Final Branhamella Catarrhalis Normal Franny 09/14/19 03:12 Aerobic Blood Culture - Final Blood Venous No Growth Day 5 Anaerobic Blood Culture - Final No Growth Day 5 09/14/19 02:55 Nasal Screen MRSA (PCR) - Final Nasal Mrsa Not Detected Assess/Plan/Problems-Billing Assessment: 28 year old man dropped off at [facility] by friends, intubated for airway protection, polysubstance abuse. - Patient Problems (1) Polysubstance overdose Current Visit: Yes Status: Acute Priority: High Code(s): T50.901A - [facility], ACCIDENTAL, INIT SNOMED Code(s): 65516313 Comment: -Patient recovering well from acute overdose, unclear agent -Patient advised to seek inpatient rehab, advised not to return to living in his car. -Gave patient card for Alcohol/Drug [place], could see us if discharged. (2) Rhabdomyolysis Current Visit: Yes Status: Acute Priority: Medium Code(s): M62.82 - RHABDOMYOLYSIS SNOMED Code(s): 459364473 Comment: -Unclear cause, could have been down for hours, may have had seizures, excessive tone -Rhabdo improving. Taking liquids PO. -Creatinine stable (3) DVT prophylaxis Current Visit: Yes Status: Acute Priority: Low Code(s): Z29.9 - ENCOUNTER FOR PROPHYLACTIC MEASURES, UNSPECIFIED SNOMED Code(s): 223584735 Comment: -ambulatory (4) Behavior disturbance Current Visit: Yes Status: Acute Priority: Medium Code(s): F91.9 - CONDUCT DISORDER, UNSPECIFIED SNOMED Code(s): 65100300 Comment: -Psychiatry recommendations appreciated. Status and Disposition: inpatient, agrees he needs inpatient rehab after hospital stay
[2019-09-20] MEDS: OLANzapine TAB*ODT* 5 MG PO SCH (22:14)
[2019-09-20] MEDS: D5LR 1000 ML BAG* 1,000 ML IV SCH (23:01)
[2019-09-21] MEDS: Heparin VIAL(*) 5000 UNITS/ML VIAL (FIVE THOUSAND) SUBCUT SCH ×3 (07:09→20:15)
[2019-09-21] MEDS: Pantoprazole IV* 40 MG IV SCH (10:06)
[2019-09-21] MEDS: Senna TAB 8.6 mg* TAB PO SCH ×2 (10:06→20:14)
--- NOTE | 2019-09-21 14:39 | PN ---
Subjective Date of Service: 09/21/19 Interval History: Javier was initially aggressive this morning to his nurse and aide, but has become agreeable as the day has passed. His mom is currently here. He pretends to sleep for most of the time I am in the room but answers my questions with encouragement. He has no complaints. He agrees that rehab is the right next step for him. He wants to be advanced to thin liquids. Notes dry feet. Family History: Unchanged from Admission Social History: Unchanged from Admission Past Medical History: Unchanged from Admission Objective Active Medications: Bisacodyl (Dulcolax Supp*) 10 mg [place] DAILY PRN PRN Reason: CONSTIPATION Dextrose (D50w Syringe 50 Ml*) 25 gm IV PUSH ONCE PRN PRN Reason: FS < 60 Last Admin: 09/15/19 11:36 Dose: 25 gm Docusate Sodium (Colace Liq*) 100 mg PO BID PRN PRN Reason: CONSTIPATION Haloperidol Lactate (Haldol Inj Iv/Im*) 5 mg IV SLOW PU Q6H PRN PRN Reason: AGITATION Heparin Sodium (Porcine) (Heparin Vial(*)) 5,000 units SUBCUT Q8HR [facility] Last Admin: 09/21/19 07:09 Dose: Not Given Multi-Ingredient Ointment (Hydrocerin*) 1 applic TOPICAL BID [facility] Olanzapine (Zyprexa * Tab Odt) 5 mg PO BEDTIME [facility] Last Admin: 09/20/19 22:14 Dose: Not Given Pantoprazole Sodium (Protonix Iv*) 40 mg IV DAILY [facility] Last Admin: 09/21/19 10:06 Dose: 40 mg Senna (Senokot 8.6 Mg Tab*) 2 tab PO BID [facility] Last Admin: 09/21/19 10:06 Dose: Not Given Vital Signs - 8 hr 09/21/19 09/21/19 07:25 08:00 Temperature 98.0 F Pulse Rate 78 Respiratory 20 19 Rate Blood Pressure 139/63 (mmHg) O2 Sat by Pulse 98 Oximetry Oxygen Devices in Use Now: None Appearance: alert, no distress, thin Eyes: No Scleral Icterus Ears/Nose/Mouth/Throat: NL Teeth, Lips, Gums Neck: NL Appearance and Movements; NL JVP Respiratory: Symmetrical Chest Expansion and Respiratory Effort Cardiovascular: - - mildly tachycardic Abdominal: - - won't let me see femoral access site Extremities: No Edema Skin: - - skin on feet is peeling Result Diagrams: 09/18/19 05:35 09/19/19 05:10 Microbiology and Other Data: Microbiology 09/15/19 08:35 Gram Stain - Final Sputum Sputum Culture - Final Branhamella Catarrhalis Normal Franny 09/14/19 03:12 Aerobic Blood Culture - Final Blood Venous No Growth Day 5 Anaerobic Blood Culture - Final No Growth Day 5 09/14/19 02:55 Nasal Screen MRSA (PCR) - Final Nasal Mrsa Not Detected Assess/Plan/Problems-Billing Assessment: 28 year old man dropped off at [facility] by friends, intubated for airway protection, polysubstance use - Patient Problems (1) Polysubstance overdose Current Visit: Yes Status: Acute Priority: High Code(s): T50.901A - POISONING BY UNSP DRUG/MEDS/BIOL SUBST, ACCIDENTAL, INIT SNOMED Code(s): 11745165 Comment: -Patient recovering well from acute overdose, unclear agent, makes meth -He is now agreeable to inpatient rehab with the goal to ultimately move to [place] with his mom -Appreciate social work re-eval tomorrow to help with choosing a rehab (2) Rhabdomyolysis Current Visit: Yes Status: Acute Priority: Medium Code(s): M62.82 - RHABDOMYOLYSIS SNOMED Code(s): 433340749 Comment: -Unclear cause, could have been down for hours, may have had seizures, excessive tone -was improving as of yesterday; refused labs this morning - refusing IVF currently; will repeat CK and BMP tomorrow to be sure it is still improving while off IVF (3) Behavior disturbance Current Visit: Yes Status: Acute Priority: Medium Code(s): F91.9 - CONDUCT DISORDER, UNSPECIFIED SNOMED Code(s): 37162861 Comment: -evaluated by Dr. Huertas, who recommended olanzapine QHS with haldol PRN and signed off Status and Disposition: ambulate today. speech re-evaluation for diet advancement SW re-evaluation for rehab placement recheck labs tomorrow off IVF
[2019-09-21] MEDS: Moisturizing CREAM* 120 GM JAR TOPICAL SCH (20:14)
[2019-09-21] MEDS: OLANzapine TAB*ODT* 5 MG PO SCH (20:14)
[2019-09-21] MEDS ORDERED: LORazepam INJ* 2 MG/ML 1 ML VIAL ONE (20:28)
[2019-09-21] MEDS ORDERED: LORazepam INJ* 2 MG/ML 1 ML VIAL IM ONE (20:31)
[2019-09-21] MEDS ORDERED: Lorazepam PYXIS KEY PRN (20:31)
--- NOTE | 2019-09-21 20:36 | PN ---
Hospitalist Progress Note Date of Service: 09/21/19 Called to bedside for combativeness. Patient spitting at staff requesting to leave. He is unable to tell me why he wants to leave or the consequences of leaving at this point. He states that he needs to make a call. He has swung at staff adn tried to kick and punch security guards. Dr Pedraza initially paged and soft restraints to the wrists applied. Mask applied due to spitting. IM haldaol given have orderd 2 mg of im ativan at this point as well. Pt is a danger to self and others at this point. Would continue restraints at this point, will remove irvin. Nursing prior to my arrived tried distraction attempts that did not help
[2019-09-21] MEDS: LORazepam INJ* 2 MG/ML 1 ML VIAL IV PUSH ONE (20:38)
[2019-09-21] MEDS ORDERED: diPHENhydraMINE IV* 50 MG/ML 1 ml VIAL (BENADRYL) IM ONE (20:45)
[2019-09-21] MEDS ORDERED: Haloperidol INJ IV/IM* 5 MG/ML AMP IM ONE (20:59)
[2019-09-21] MEDS ORDERED: OLANzapine TAB*ODT* 5 MG PO ONE (23:02)
[2019-09-22 06:01] LABS: ABS Basophils 0.1 10^3/ul (0-0.2); ABS Eosinophils 0.2 10^3/ul (0-0.6); ABS Monocytes 1.1 10^3/ul (0-0.8); ABS Neutrophils 4.7 10^3/ul (1.5-7.7); Eosinophil % 2.4 %; Hematocrit 34 % (42-52); Hemoglobin 11.5 g/dL (14.0-18.0); Lymphocyte % 25.6 %; Mean Corpuscular HGB Conc 34 g/dL (31-36); Mean Corpuscular Hemoglobin 30 pg (27-31); Mean Corpuscular Volume 89 fL (80-94); Mean Platelet Volume 8.3 fL (7.4-10.4); Platelet Count 233 10^3/uL (150-450); Red Blood Count 3.82 10^6 /uL (4.18-5.48); Red Cell Distribution Width 14 % (10-15)
[2019-09-22 06:19] LABS: BUN/Creatinine Ratio 29.5 (8-20); Calcium 8.7 mg/dL (8.6-10.3); EGFR African American 143.4 (>60); EGFR Non-African American 118.5 (>60)
[2019-09-22] MEDS: Heparin VIAL(*) 5000 UNITS/ML VIAL (FIVE THOUSAND) SUBCUT SCH ×3 (06:39→20:16)
--- NOTE | 2019-09-22 08:39 | PN ---
Subjective Date of Service: 09/22/19 Interval History: Pt is feeling ok. He does state he has pain behind his L eye. He does not tell me if there was any trauma to the face (I notice mild swelling just inferior to the L eye). He states he has moved his bowels. Overnight events noted. He is still agreeable to pursuing inpatient drug rehab. Objective Active Medications: Bisacodyl (Dulcolax Supp*) 10 mg [place] DAILY PRN PRN Reason: CONSTIPATION Dextrose (D50w Syringe 50 Ml*) 25 gm IV PUSH ONCE PRN PRN Reason: FS < 60 Last Admin: 09/15/19 11:36 Dose: 25 gm Docusate Sodium (Colace Liq*) 100 mg PO BID PRN PRN Reason: CONSTIPATION Haloperidol Lactate (Haldol Inj Iv/Im*) 5 mg IV SLOW PU Q6H PRN PRN Reason: AGITATION Last Admin: 09/21/19 20:13 Dose: 5 mg Heparin Sodium (Porcine) (Heparin Vial(*)) 5,000 units SUBCUT Q8HR [facility] Last Admin: 09/22/19 06:39 Dose: Not Given Miscellaneous (Ativan Pyxis Cedillo) 1 ea N/A .ATIVAN IV CEDILLO PRN PRN Reason: PYXIS CEDILLO Multi-Ingredient Ointment (Hydrocerin*) 1 applic TOPICAL BID [facility] Last Admin: 09/21/19 20:14 Dose: Not Given Olanzapine (Zyprexa * Tab Odt) 5 mg PO BEDTIME [facility] Last Admin: 09/21/19 20:14 Dose: Not Given Pantoprazole Sodium (Protonix Iv*) 40 mg IV DAILY [facility] Last Admin: 09/21/19 10:06 Dose: 40 mg Senna (Senokot 8.6 Mg Tab*) 2 tab PO BID [facility] Last Admin: 09/21/19 20:14 Dose: Not Given Vital Signs - 8 hr 09/22/19 09/22/19 02:48 03:43 Temperature 97.7 F Pulse Rate 87 Respiratory 17 20 Rate Blood Pressure 128/67 (mmHg) O2 Sat by Pulse 96 Oximetry Oxygen Devices in Use Now: None Appearance: Young male lying in bed, answers questions with significant prodding , NAD Eyes: No Scleral Icterus Ears/Nose/Mouth/Throat: Mucous Membranes Moist Respiratory: Symmetrical Chest Expansion and Respiratory Effort, Clear to Auscultation - anteriorly Cardiovascular: NL Sounds; No Murmurs; No JVD, RRR, - - 1+ LE edema Abdominal: NL Sounds; No Tenderness; No Distention Extremities: No Clubbing, Cyanosis Skin: No Nodules or Sclerosis Neurological: - - Awake but keeps eyes closed and does not speak to me until I ask him the same question several times Result Diagrams: 09/22/19 05:51 09/22/19 05:51 Microbiology and Other Data: Microbiology 09/15/19 08:35 Gram Stain - Final Sputum Sputum Culture - Final Branhamella Catarrhalis Normal Franny 09/14/19 03:12 Aerobic Blood Culture - Final Blood Venous No Growth Day 5 Anaerobic Blood Culture - Final No Growth Day 5 09/14/19 02:55 Nasal Screen MRSA (PCR) - Final Nasal Mrsa Not Detected Assess/Plan/Problems-Billing Mr Aparicio is a 28 year old man dropped off at [facility] by friends who was intubated for airway protection due to presumed polysubstance overdose. - Patient Problems (1) Rhabdomyolysis Current Visit: Yes Status: Acute Code(s): M62.82 - RHABDOMYOLYSIS SNOMED Code(s): 394826400 Comment: Resolving. No need to follow the CPK any longer. (2) Polysubstance overdose Current Visit: Yes Status: Acute Code(s): T50.901A - POISONING BY UNSP DRUG/ MEDS/BIOL SUBST, ACCIDENTAL, INIT SNOMED Code(s): 80033395 Comment: Pt is agreeable to inpatient drug rehab. Social work tried to see the patient this AM but he just pulled the covers over his head instead of signing the needed paperwork to start working on an inpatient rehab bed. (3) Fever Current Visit: Yes Status: Acute Code(s): R50.9 - FEVER, UNSPECIFIED SNOMED Code(s): 180706348 Comment: Pt \reportedly had a fever of >105 on presentation to [place]. No fever at [facility]. He was treated for possible aspiration pneumonia with 4 days of zosyn. No signs of pneumonia therefore Abx stopped. (4) Behavior disturbance Current Visit: Yes Status: Acute Code(s): F91.9 - CONDUCT DISORDER, UNSPECIFIED SNOMED Code(s): 29088086 Comment: Pt continues to have outbursts of severe agitation. Last night appears to have been set off by his nurse asking him to take his evening medications. Continue olanzapine qHS and monitor for stable behaviors. I do not think he is delirious any further and likely gets aggitated when he perceives he is being bothered. (5) Delirium Current Visit: Yes Status: Acute Code(s): R41.0 - DISORIENTATION, UNSPECIFIED SNOMED Code(s): 6887732 Comment: Resolved. Likely initially delirious from polysubstance abuse. (6) DVT prophylaxis Current Visit: Yes Status: Acute Code(s): Z29.9 - ENCOUNTER FOR PROPHYLACTIC MEASURES, UNSPECIFIED SNOMED Code(s): 581870467 Comment: ambulation Status and Disposition: .
[2019-09-22] MEDS: Moisturizing CREAM* 120 GM JAR TOPICAL SCH ×2 (09:30→19:36)
[2019-09-22] MEDS: Senna TAB 8.6 mg* TAB PO SCH (09:31)
[2019-09-22] MEDS: Pantoprazole IV* 40 MG IV SCH (09:31)
[2019-09-22] MEDS: OLANzapine TAB*ODT* 5 MG PO SCH (19:36)
[2019-09-23] MEDS: Heparin VIAL(*) 5000 UNITS/ML VIAL (FIVE THOUSAND) SUBCUT SCH ×3 (04:39→20:51)
[2019-09-23] MEDS: Moisturizing CREAM* 120 GM JAR TOPICAL SCH ×2 (09:05→20:50)
--- NOTE | 2019-09-23 11:35 | PN ---
Subjective Date of Service: 09/23/19 Interval History: Pt is feeling ok. He states he has achiness in his lateral thighs. He denies any SOB, CP, no issues with BMs. Objective Active Medications: Bisacodyl (Dulcolax Supp*) 10 mg [place] DAILY PRN PRN Reason: CONSTIPATION Dextrose (D50w Syringe 50 Ml*) 25 gm IV PUSH ONCE PRN PRN Reason: FS < 60 Last Admin: 09/15/19 11:36 Dose: 25 gm Docusate Sodium (Colace Liq*) 100 mg PO BID PRN PRN Reason: CONSTIPATION Haloperidol Lactate (Haldol Inj Iv/Im*) 5 mg IV SLOW PU Q6H PRN PRN Reason: AGITATION Last Admin: 09/21/19 20:13 Dose: 5 mg Heparin Sodium (Porcine) (Heparin Vial(*)) 5,000 units SUBCUT Q8HR [facility] Last Admin: 09/23/19 04:39 Dose: Not Given Miscellaneous (Ativan Pyxis Cedillo) 1 ea N/A .ATIVAN IV CEDILLO PRN PRN Reason: PYXIS CEDILLO Multi-Ingredient Ointment (Hydrocerin*) 1 applic TOPICAL BID [facility] Last Admin: 09/23/19 09:05 Dose: Not Given Olanzapine (Zyprexa * Tab Odt) 5 mg PO BEDTIME [facility] Last Admin: 09/22/19 19:36 Dose: Not Given Vital Signs - 8 hr 09/23/19 08:00 Respiratory 16 Rate Oxygen Devices in Use Now: None Appearance: Young thin male sitting up in bed, NAD Eyes: No Scleral Icterus Ears/Nose/Mouth/Throat: Mucous Membranes Moist Respiratory: Symmetrical Chest Expansion and Respiratory Effort, Clear to Auscultation Cardiovascular: NL Sounds; No Murmurs; No JVD, RRR, No Edema Abdominal: NL Sounds; No Tenderness; No Distention Extremities: No Clubbing, Cyanosis Skin: No Nodules or Sclerosis Neurological: Alert and Oriented x 3 Result Diagrams: 09/22/19 05:51 09/22/19 05:51 Microbiology and Other Data: Microbiology 09/15/19 08:35 Gram Stain - Final Sputum Sputum Culture - Final Branhamella Catarrhalis Normal Franny 09/14/19 03:12 Aerobic Blood Culture - Final Blood Venous No Growth Day 5 Anaerobic Blood Culture - Final No Growth Day 5 09/14/19 02:55 Nasal Screen MRSA (PCR) - Final Nasal Mrsa Not Detected Assess/Plan/Problems-Billing Mr Aparicio is a 28 year old man dropped off at [facility] by friends who was intubated for airway protection due to presumed polysubstance overdose. - Patient Problems (1) Rhabdomyolysis Current Visit: Yes Status: Acute Code(s): M62.82 - RHABDOMYOLYSIS SNOMED Code(s): 563784471 Comment: Resolving. No need to follow the CPK any longer. (2) Polysubstance overdose Current Visit: Yes Status: Acute Code(s): T50.901A - POISONING BY UNSP DRUG/ MEDS/BIOL SUBST, ACCIDENTAL, INIT SNOMED Code(s): 15354203 Comment: Pt is agreeable to inpatient drug rehab. He has signed the release of information and now we are waiting for a bed offer. (3) Fever Current Visit: Yes Status: Acute Code(s): R50.9 - FEVER, UNSPECIFIED SNOMED Code(s): 248139472 Comment: Pt reportedly had a fever of >105 on presentation to [place]. No fever at [facility]. He was treated for possible aspiration pneumonia with 4 days of zosyn. No signs of pneumonia therefore Abx stopped. No further episodes of fever. (4) Behavior disturbance Current Visit: Yes Status: Acute Code(s): F91.9 - CONDUCT DISORDER, UNSPECIFIED SNOMED Code(s): 34744076 Comment: Pt has recently been refusing nursing evaluations and general care from nursing but he has not had any outbursts in >24hr. Continue olanzapine at bedtime. (5) Delirium Current Visit: Yes Status: Acute Code(s): R41.0 - DISORIENTATION, UNSPECIFIED SNOMED Code(s): 9088320 Comment: Resolved. Likely initially delirious from polysubstance abuse. (6) DVT prophylaxis Current Visit: Yes Status: Acute Code(s): Z29.9 - ENCOUNTER FOR PROPHYLACTIC MEASURES, UNSPECIFIED SNOMED Code(s): 499843208 Comment: ambulation (7) Full code status Current Visit: Yes Status: Acute Code(s): Z78.9 - OTHER SPECIFIED HEALTH STATUS SNOMED Code(s): 590895860 Status and Disposition: .
[2019-09-23] MEDS: OLANzapine TAB*ODT* 5 MG PO SCH (20:50)
[2019-09-23] MEDS: Nicotine* 2MG (FRUIT FLAVOR) GUM PO PRN (20:57)
[2019-09-24] MEDS: Nicotine* 2MG (FRUIT FLAVOR) GUM PO PRN ×6 (03:49→18:08)
[2019-09-24] MEDS: Heparin VIAL(*) 5000 UNITS/ML VIAL (FIVE THOUSAND) SUBCUT SCH ×3 (05:18→20:58)
[2019-09-24] MEDS: Moisturizing CREAM* 120 GM JAR TOPICAL SCH ×3 (08:31→20:58)
--- NOTE | 2019-09-24 13:56 | PN ---
Subjective Date of Service: 09/24/19 Interval History: patient seen today, seen by speech and was cleared for thin liquid. awaiting placement potentially for tomorrow. No events overnight Past Medical History: Unchanged from Admission Objective Active Medications: Bisacodyl (Dulcolax Supp*) 10 mg [place] DAILY PRN PRN Reason: CONSTIPATION Dextrose (D50w Syringe 50 Ml*) 25 gm IV PUSH ONCE PRN PRN Reason: FS < 60 Last Admin: 09/15/19 11:36 Dose: 25 gm Docusate Sodium (Colace Liq*) 100 mg PO BID PRN PRN Reason: CONSTIPATION Haloperidol Lactate (Haldol Inj Iv/Im*) 5 mg IV SLOW PU Q6H PRN PRN Reason: AGITATION Last Admin: 09/21/19 20:13 Dose: 5 mg Heparin Sodium (Porcine) (Heparin Vial(*)) 5,000 units SUBCUT Q8HR [facility] Last Admin: 09/24/19 13:15 Dose: Not Given Miscellaneous (Ativan Pyxis Cedillo) 1 ea N/A .ATIVAN IV CEDILLO PRN PRN Reason: PYXIS CEDILLO Multi-Ingredient Ointment (Hydrocerin*) 1 applic TOPICAL BID [facility] Last Admin: 09/24/19 09:48 Dose: 1 applic Nicotine Polacrilex (Nicotine Gum*) 2 mg PO Q2H PRN PRN Reason: CRAVING Last Admin: 09/24/19 12:33 Dose: 2 mg Olanzapine (Zyprexa * Tab Odt) 5 mg PO BEDTIME [facility] Last Admin: 09/23/19 20:50 Dose: Not Given Vital Signs - 8 hr 09/24/19 09/24/19 09/24/19 08:00 09:16 11:41 Temperature 97.8 F 97.8 F Pulse Rate 86 104 Respiratory 18 16 18 Rate Blood Pressure 129/70 137/88 (mmHg) O2 Sat by Pulse 99 99 Oximetry Oxygen Devices in Use Now: None Appearance: awake, alert no distress. Eyes: No Scleral Icterus, - - EOMI Ears/Nose/Mouth/Throat: NL Teeth, Lips, Gums, Mucous Membranes Moist Neck: NL Appearance and Movements; NL JVP, Trachea Midline Respiratory: Symmetrical Chest Expansion and Respiratory Effort, Clear to Auscultation Cardiovascular: NL Sounds; No Murmurs; No JVD, RRR, No Edema Abdominal: NL Sounds; No Tenderness; No Distention Extremities: No Edema Neurological: Alert and Oriented x 3 Result Diagrams: 09/22/19 05:51 09/22/19 05:51 Microbiology and Other Data: Microbiology 09/15/19 08:35 Gram Stain - Final Sputum Sputum Culture - Final Branhamella Catarrhalis Normal Franny 09/14/19 03:12 Aerobic Blood Culture - Final Blood Venous No Growth Day 5 Anaerobic Blood Culture - Final No Growth Day 5 09/14/19 02:55 Nasal Screen MRSA (PCR) - Final Nasal Mrsa Not Detected Assess/Plan/Problems-Billing Mr Aparicio is a 28 year old man dropped off at [facility] by friends who was intubated for airway protection due to presumed polysubstance overdose. - Patient Problems (1) Behavior disturbance Current Visit: Yes Status: Acute Code(s): F91.9 - CONDUCT DISORDER, UNSPECIFIED SNOMED Code(s): 07831441 Comment: - Seems to have improved. Will continue olanzapine 5 mg at bedtime. (2) Polysubstance overdose Current Visit: Yes Status: Acute Code(s): T50.901A - POISONING BY UNSP DRUG/ MEDS/BIOL SUBST, ACCIDENTAL, INIT SNOMED Code(s): 06017386 Comment: - Pt is agreeable to inpatient drug rehab. - He has signed the release of information and now we are waiting for a bed offer. (3) Rhabdomyolysis Current Visit: Yes Status: Acute Code(s): M62.82 - RHABDOMYOLYSIS SNOMED Code(s): 579603676 Comment: Resolving. CPK down to 1263 (4) DVT prophylaxis Current Visit: Yes Status: Acute Code(s): Z29.9 - ENCOUNTER FOR PROPHYLACTIC MEASURES, UNSPECIFIED SNOMED Code(s): 759155162 Comment: ambulation Status and Disposition: .
[2019-09-24] MEDS: OLANzapine TAB*ODT* 5 MG PO SCH (20:58)
[2019-09-25] MEDS: Heparin VIAL(*) 5000 UNITS/ML VIAL (FIVE THOUSAND) SUBCUT SCH ×3 (06:03→20:11)
[2019-09-25] MEDS: Nicotine* 2MG (FRUIT FLAVOR) GUM PO PRN ×3 (08:56→18:15)
--- NOTE | 2019-09-25 10:13 | PN ---
Subjective Date of Service: 09/25/19 Interval History: Patient seen today, doing well. no fever or chills. complaining about his food this morning. no events overnight. his diet has been unrestricted and is able to tolerate thin liquid Past Medical History: Unchanged from Admission Objective Active Medications: Bisacodyl (Dulcolax Supp*) 10 mg [place] DAILY PRN PRN Reason: CONSTIPATION Dextrose (D50w Syringe 50 Ml*) 25 gm IV PUSH ONCE PRN PRN Reason: FS < 60 Last Admin: 09/15/19 11:36 Dose: 25 gm Docusate Sodium (Colace Liq*) 100 mg PO BID PRN PRN Reason: CONSTIPATION Haloperidol Lactate (Haldol Inj Iv/Im*) 5 mg IV SLOW PU Q6H PRN PRN Reason: AGITATION Last Admin: 09/21/19 20:13 Dose: 5 mg Heparin Sodium (Porcine) (Heparin Vial(*)) 5,000 units SUBCUT Q8HR [facility] Last Admin: 09/25/19 06:03 Dose: Not Given Miscellaneous (Ativan Pyxis Cedillo) 1 ea N/A .ATIVAN IV CEDILLO PRN PRN Reason: PYXIS CEDILLO Multi-Ingredient Ointment (Hydrocerin*) 1 applic TOPICAL BID [facility] Last Admin: 09/24/19 20:58 Dose: Not Given Nicotine Polacrilex (Nicotine Gum*) 2 mg PO Q2H PRN PRN Reason: CRAVING Last Admin: 09/25/19 08:56 Dose: 2 mg Olanzapine (Zyprexa * Tab Odt) 5 mg PO BEDTIME [facility] Last Admin: 09/24/19 20:58 Dose: Not Given Vital Signs - 8 hr 09/25/19 08:25 Temperature 97.9 F Pulse Rate 118 Respiratory 20 Rate Blood Pressure 109/70 (mmHg) O2 Sat by Pulse 97 Oximetry Oxygen Devices in Use Now: None Appearance: awake, alert no distress. Hoarse voice Eyes: No Scleral Icterus Ears/Nose/Mouth/Throat: NL Teeth, Lips, Gums, Mucous Membranes Moist Respiratory: Symmetrical Chest Expansion and Respiratory Effort, Clear to Auscultation Cardiovascular: NL Sounds; No Murmurs; No JVD, No Edema Abdominal: NL Sounds; No Tenderness; No Distention Neurological: Alert and Oriented x 3 Result Diagrams: 09/22/19 05:51 09/22/19 05:51 Microbiology and Other Data: Microbiology 09/15/19 08:35 Gram Stain - Final Sputum Sputum Culture - Final Branhamella Catarrhalis Normal Franny 09/14/19 03:12 Aerobic Blood Culture - Final Blood Venous No Growth Day 5 Anaerobic Blood Culture - Final No Growth Day 5 09/14/19 02:55 Nasal Screen MRSA (PCR) - Final Nasal Mrsa Not Detected Assess/Plan/Problems-Billing Mr Aparicio is a 28 year old man dropped off at [facility] by friends who was intubated for airway protection due to presumed polysubstance overdose. - Patient Problems (1) Behavior disturbance Current Visit: Yes Status: Acute Code(s): F91.9 - CONDUCT DISORDER, UNSPECIFIED SNOMED Code(s): 64916393 Comment: - Seems to have improved. Will continue olanzapine 5 mg at bedtime. (2) Polysubstance overdose Current Visit: Yes Status: Acute Code(s): T50.901A - POISONING BY UNSP DRUG/ MEDS/BIOL SUBST, ACCIDENTAL, INIT SNOMED Code(s): 79607168 Comment: - Pt is agreeable to inpatient drug rehab. - He has signed the release of information and now we are waiting for a bed offer. (3) Rhabdomyolysis Current Visit: Yes Status: Acute Code(s): M62.82 - RHABDOMYOLYSIS SNOMED Code(s): 012013417 Comment: Resolving. CPK down to 1263 (4) DVT prophylaxis Current Visit: Yes Status: Acute Code(s): Z29.9 - ENCOUNTER FOR PROPHYLACTIC MEASURES, UNSPECIFIED SNOMED Code(s): 582606970 Comment: ambulation Status and Disposition: .
[2019-09-25] MEDS: Moisturizing CREAM* 120 GM JAR TOPICAL SCH ×2 (10:55→20:11)
[2019-09-25 16:20] VITALS: BP 134/81
--- NOTE | 2019-09-25 19:38 | DS ---
DISCHARGE SUMMARY: DATE OF ADMISSION: 09/14/19 DATE OF DISCHARGE: 09/25/19 FINAL DISCHARGE DIAGNOSES: 1. Acute respiratory failure secondary to polysubstance abuse and overdose. 2. Acute kidney injury secondary to overdose and rhabdomyolysis. 3. Hyperkalemia. 4. Acute lactic acidosis. 5. Delirium and behavioral changes, improved. 6. Rhabdomyolysis, resolved. HOSPITAL COURSE: The patient was admitted via transfer to our facility from [facility] after he was intubated. Shortly after arrival due to altered mental status, agitation and fever and was found to have hyperkalemia and acute kidney injury, he was placed on mechanical ventilation, aggressive IV fluid, cooling blanket and transferred to our facility. On arrival, he was found to be tachycardic at that night with a heart rate of 98. He was already on Levophed and pressors for hypotension and his drug screen was positive for cocaine, methamphetamine and cannabis. He remained in the ICU under the marketing communication manager care service and he was transferred to the hospitalist service on 09/22/19 in a stable condition and he remained on the hospitalist service and he was seen and evaluated by me for the initial encounter on 09/24/19. He had evidence of some hoarseness of his voice , diet was advanced after he was cleared by speech pathology, currently on regular diet. His white count which was 21,000 on presentation was down to 8, 000 on 09/22/19 and his acute kidney injury which was manifested with a creatinine of 1.5 is down to 0.7 on 09/22/19. Lactic acid normalized to 0.7 and his CPK which peaked at 35,000 was down to 1200 on 09/22/19. Therefore, the patient was maintained on medical floor awaiting placement and he was accepted at [facility] for inpatient rehab and he has been offered a bed for tomorrow, 09/26/19. The patient was seen and evaluated and he is deemed stable for discharge in a.m. PHYSICAL EXAM ON DISCHARGE: Temperature 97.9, pulse 87 to 109, respiratory rate 20, satting 98%, blood pressure 134/81 and 109/70. General: He is awake, alert, cooperative at times. He is very unhappy with his meals, but compliant with exam. Lungs: Fine coarse rhonchi and transmitted upper airway breath sounds. Cardiovascular: S1, S2. Regular rate and rhythm. Abdomen: Soft, nontender. Head and Neck: He does have some hoarseness voice. Extraocular muscles intact. Moist mucous membrane. DIAGNOSTIC STUDIES/LAB DATA: Please refer to HPI for the pertinent finding. Chest x-ray on 09/17/19, no acute cardiopulmonary disease. DISCHARGE MEDICATIONS: He will be discharged on: 1. Zyprexa 5 mg at bedtime. 2. Nicotine p.r.n. DISCHARGE CONDITION: Stable. DISCHARGE DISPOSITION: To [facility] Rehab Unit. [id number]/[facility] #: [id number] [facility]
[2019-09-25] MEDS ORDERED: Melatonin 3 MG TAB PO ONE (19:43)
[2019-09-25] MEDS ORDERED: diPHENhydraMINE PO* 25 MG PO PRN (19:43)
[2019-09-25] MEDS: OLANzapine TAB*ODT* 5 MG PO SCH (20:10)
[2019-09-26] MEDS: Heparin VIAL(*) 5000 UNITS/ML VIAL (FIVE THOUSAND) SUBCUT SCH (05:16)
[2019-09-26] MEDS: Moisturizing CREAM* 120 GM JAR TOPICAL SCH (10:07)
== END 2019-09-26 08:00 | DRG 812 ==
LOC: ICU 02:18 → MEDTELE 09-19 11:30
PROVIDERS: ADMIT Internal Medicine; ATTEND Internal Medicine
PROC: 5A1945Z Respiratory Ventilation, 24-96 Consecutive Hours (ICD-10-PCS; principal; 2019-09-14)
DX: T50.911A Poisoning by multiple unspecified drugs, medicaments and biological substances, accidental (unintentional), initial encounter (principal); J69.0 Pneumonitis due to inhalation of food and vomit; J96.00 Acute respiratory failure, unspecified whether with hypoxia or hypercapnia; N17.9 Acute kidney failure, unspecified; M62.82 Rhabdomyolysis; F05 Delirium due to known physiological condition; E87.2 Acidosis; R79.89 Other specified abnormal findings of blood chemistry; D72.829 Elevated white blood cell count, unspecified; F91.9 Conduct disorder, unspecified; E87.5 Hyperkalemia; F12.10 Cannabis abuse, uncomplicated; F15.10 Other stimulant abuse, uncomplicated; F14.10 Cocaine abuse, uncomplicated; Y92.9 Unspecified place or not applicable; Z59.0 Homelessness; Z28.21 Immunization not carried out because of patient refusal; Z78.1 Physical restraint status
CPT/HCPCS: 36415; 71045; 80048; 80053; 81003; 81015; 82550; 83605; 83735; 83986; 84100; 84443; 84484; 85025; 85027; 86140; 87040; 87070; 87077; 87185; 87205; 87641; 93005; 94002; 94003; A9270-GY; J1200; J1630; J1644; J2060; J2250; J2543; J2704; J3010; J3480; J7060

== ENCOUNTER 2019-10-15 18:14 | Emergency (ER) | payer OTHER ==
--- NOTE | 2019-10-15 20:19 | ED ---
HPI Febrile Illness - HPI Summary HPI Summary: This patient is a 29 y/o male presenting to [facility] via EMS c/o fever, sore throat , and runny nose for the past 3 days. Patient is a resident at [facility]. He had a rapid strep test and it was negative. Patient states his symptoms have worsen and was sent to the ED. Denies any recent travel. Denies any contact with patients positive for COVID-19. Patient denies chest pain, shortness of breath, nausea, vomiting. Patient with hx of intubation x2 in the past year. - History of Current Complaint Chief Complaint: EDFever Time Seen by Provider: 10/15/19 19:57 Hx Obtained From: Patient Onset/Duration: Started Days Ago - 3, Still Present Timing: Lasting Days - 3 Current Severity: Moderate Pain Intensity: 5 - throat Pain Scale Used: 0-10 Numeric Aggravating Factors: Nothing Alleviating Factors: Nothing Associated Signs and Symptoms: Sore Throat, Other: - POSITIVE: fever, runny nose. NEGATIVE: chest pain, shortness of breath, nausea, vomiting. - Additional Pertinent History Primary Care Physician: [id number] - Allergy/Home Medications Allergies/Adverse Reactions: Allergies Allergy/AdvReac Type Severity Reaction Status Date / Time No Known Allergies Allergy Verified 10/15/19 18:24 Home Medications: Home Medications Nicotine GUM* 2MG FRUIT FLAVOR [Nicotine GUM*] 2 mg PO Q2H PRN gum 09/25/19 [Rx ] OLANzapine TAB*ODT* [ZyPREXA * 5 MG TAB ODT] 5 mg PO BEDTIME tab 09/25/19 [Rx] PMH/Surg Hx/FS Hx/Imm Hx Sensory History: Denies: Hx Contacts or Glasses, Hx Hearing Aid Opthamlomology History: Denies: Hx Contacts or Glasses Psychiatric History: Reports: Hx Substance Abuse Infectious Disease History: No Infectious Disease History: Denies: Traveled Outside the [place] in Last 30 Days - Family History Known Family History: Negative: Cardiac Disease, Hypertension, Diabetes - Social History Alcohol Use: Rare Substance Use Type: Reports: Excessive Caffeine, Prescribed Smoking Status (MU): Current Every Day Smoker Review of Systems Positive: Fever Positive: Sore Throat, Nasal Discharge Negative: Chest Pain Negative: Shortness Of Breath Negative: Vomiting, Nausea All Other Systems Reviewed And Are Negative: Yes Physical Exam - Summary Physical Exam Summary: VITAL SIGNS: Reviewed. GENERAL: Patient is a well-developed and nourished male. Patient is not in any acute respiratory distress. HEAD AND FACE: No signs of trauma. No ecchymosis, hematomas or skull depressions. No sinus tenderness. EYES: PERRLA, EOMI x 2, No injected conjunctiva, no nystagmus. EARS: Hearing grossly intact. Ear canals and tympanic membranes are within normal limits. MOUTH: Oropharynx within normal limits. Pharyngeal erythema without exudates. NECK: Supple, trachea is midline, no JVD, no carotid bruit, no c-spine tenderness, neck with full ROM. No lymphadenopathy. CHEST: Symmetric, no tenderness at palpation LUNGS: Clear to auscultation bilaterally. No wheezing or crackles. CVS: Regular rate and rhythm, S1 and S2 present, no murmurs or gallops appreciated. ABDOMEN: Soft, non-tender. No signs of distention. No rebound, no guarding, and no masses palpated. Bowel sounds are normal. EXTREMITIES: FROM in all major joints, no edema, no cyanosis or clubbing. NEURO: Alert and oriented x 3. No acute neurological deficits. Speech is normal and follows commands. SKIN: Dry and warm Triage Information Reviewed: Yes Vital Signs On Initial Exam: Initial Vitals Temp Pulse Resp BP Pulse Ox 99.7 F 91 16 149/71 96 10/15/19 18:20 18 18:20 10/15/19 18:20 10/15/19 18:20 10/15/19 18:20 Vital Signs Reviewed: Yes Procedures - Sedation Patient Received Moderate/Deep Sedation with Procedure: No Diagnostics - Vital Signs Vital Signs Temp Pulse Resp BP Pulse Ox 10/15/19 18:20 99.7 F 91 16 149/71 96 - Laboratory Lab Statement: Any lab studies that have been ordered have been reviewed, and results considered in the medical decision making process. Re-Evaluation - Re-Evaluation First Eval Re-Evaluation Time: 21:19 Comment: Reviewed results with patient. He will be discharged home. Course/Dx - Course Assessment/Plan: This patient is a 29 y/o male presenting to [facility] via EMS c/o fever, sore throat, and runny nose for the past 3 days. Patient is a resident at [facility]. He had a rapid strep test and it was negative. Patient states his symptoms have worsen and was sent to the ED. Denies any recent travel. Denies any contact with patients positive for COVID- 19. Patient denies chest pain, shortness of breath, nausea, vomiting. Rapid strep negative. Rapid Influenza A and B negative. I discussed all the findings and test results with the patient. Patient was instructed to return to the emergency room immediately if any of the symptoms return worsens. Plan of care was discussed with the patient and understands and agrees. All questions were answered at patient satisfaction. There were no further complaints or concerns. Lung exam before discharge: CTA B/L. Good air exchange. No wheezing or crackles heard. CVS: S1 and S2 present. No murmurs appreciated. Patient is alert and oriented x 3. Patient is hemodynamically stable. Patient will be discharged home with follow up from his PCP in the next 2-3 days - Diagnoses Provider Diagnoses: Viral pharyngitis Discharge ED - Sign-Out/Discharge Documenting (check all that apply): Patient Departure - Discharge - Discharge Plan Condition: Stable Disposition: HOME Patient Education Materials: Pharyngitis (ED) Referrals: [facility] [Outside] Additional Instructions: FOLLOW UP WITH YOUR PRIMARY CARE PROVIDER IN 2-3 DAYS, IF YOU DON'T HAVE ONE FOLLOW UP WITH [facility]. RETURN TO THE ED FOR ANY NEW OR WORSENING SYMPTOMS. - Billing Disposition and Condition Condition: STABLE Disposition: Home - Attestation Statements Document Initiated by Reza: Yes Documenting Scribe: Lisa Harkins Provider For Whom Reza is Documenting (Include Credential): Cj Goncalves MD Scribe Attestation: Lisa Mccrary scribed for Cj Goncalves MD on 10/17/19 at 0356. Scribe Documentation Reviewed: Yes Provider Attestation: The documentation as recorded by the Lisa hardwick accurately reflects the service I personally performed and the decisions made by me, Cj Goncalves MD Status of Scribe Document: Viewed
[2019-10-15 21:10] LABS: Rapid Strep Molecular Negative (Negative)
[2019-10-15 21:17] LABS: Influenza A Molecular Negative (Negative); Influenza B Molecular Negative (Negative)
[2019-10-15] MEDS ORDERED: Ibuprofen TAB* 600 MG PO ONE (21:18)
[2019-10-15 21:41] VITALS: BP 128/65
== END 2019-10-15 21:39 | disposition home or self-care (01) ==
LOC: ED 18:14
DX: J02.8 Acute pharyngitis due to other specified organisms (principal); R50.9 Fever, unspecified; R09.89 Other specified symptoms and signs involving the circulatory and respiratory systems; F17.200 Nicotine dependence, unspecified, uncomplicated
CPT/HCPCS: 87651; 99282; A9270-GY